=== PATIENT | female | born 1930 | race Caucasian/White ===

== ENCOUNTER 2017-08-13 11:54 | Inpatient (IN) | payer MEDICARE, BC ==
[2017-08-13] MEDS ORDERED: methylPREDNISolone 125 MG* 2 ML VIAL IV ONE (12:14)
[2017-08-13] MEDS ORDERED: Albuterol/Ipratropium NEB.SOL* Albuterol 2.5 MG/Ipratropium 0.5 MG 3 ML INH ONE ×2 (12:14→12:51)
[2017-08-13 12:35] LABS: ABS Basophils 0 10^3/ul (0-0.2); ABS Eosinophils 0 10^3/ul (0-0.6); ABS Monocytes 1.2 10^3/ul (0-0.8); ABS Neutrophils 8.4 10^3/ul (1.5-7.7); ABS Nucleated RBC 0 10^3/ul; Eosinophil % 0.1 % (0-6); Hematocrit 40 % (35-47); Hemoglobin 13.5 g/dl (12.0-16.0); Lymphocyte % 9.6 % (25-47); Mean Corpuscular HGB Conc 34 g/dl (31-36); Mean Corpuscular Hemoglobin 31 pg (27-31); Mean Corpuscular Volume 93 fL (80-97); Mean Platelet Volume 8 um3 (7.4-10.4); Nucleated Red Blood Cells % 0; Platelet Count 171 10^3/ul (150-450); Red Cell Distribution Width 14 % (10.5-15); White Blood Count 10.7 10^3/ul (3.5-10.8)
--- NOTE | 2017-08-13 12:43 | RAD ---
HISTORY: Shortness of breath COMPARISONS: May 17, 2017 VIEWS: 1: frontal portable view of the chest at 12:33 PM FINDINGS: LINES AND TUBES: None. CARDIOMEDIASTINAL SILHOUETTE: The cardiomediastinal silhouette is normal for portable technique. PLEURA: The costophrenic angles are sharp. No pleural abnormalities are noted. LUNG PARENCHYMA: There is hyperinflation. ABDOMEN: The upper abdomen is clear. There is no subphrenic gas. BONES AND SOFT TISSUES: Surgical clips are noted in the left axilla. IMPRESSION: COPD. NO ACTIVE CARDIOPULMONARY DISEASE.
[2017-08-13 12:49] LABS: EGFR Non-African American 84.9 (>60)
[2017-08-13] MEDS ORDERED: NS 0.9% 1000 ML* 1,000 ML IV SCH (15:15)
[2017-08-13] MEDS: Mometasone/Formoter 200/5 MDI INH SCH (20:34)
--- NOTE | 2017-08-13 21:28 | ED ---
Carlos Oropeza Julia, scribed for Noam Stokes MD on 08/13/17 at 1208 . Shortness of Breath - HPI Summary HPI Summary: This patient is a 86 year old F presenting to [facility] accompanied by her with a chief complaint of worsening SOB since this morning. Patient reports increased rhinorrhea and productive cough worse from baseline. Patient denies history of smoking. Patient uses a nebulizer once a day and is prescribed albeuterol. Patient has history of asthma, COPD, and a [place] occurring 20 years ago. Patient is regularly seen a [facility]. She was most recently seen about a month ago. She additionally is treated by Dr. Paige, straddle bug. - History of Current Complaint Chief Complaint: EDShortnessOfBreath Time Seen by Provider: 08/13/17 11:58 Hx Obtained From: Patient Onset/Duration: Sudden Onset Timing: Constant Associated Signs & Symptoms: Cough (Productive), Nasal Congestion Related History: Similar Episode - hx of asthma and COPD - Allergy/Home Medications Allergies/Adverse Reactions: Allergies Allergy/AdvReac Type Severity Reaction Status Date / Time Clarithromycin [From Biaxin] Allergy Rash Verified 05/17/17 10:00 Sulfa Drugs Allergy Rash Verified 05/17/17 10:00 Tetanus Toxoid Allergy See Comment Verified 05/17/17 10:00 PMH/Surg Hx/FS Hx/Imm Hx Endocrine/Hematology History: Reports: Hx Thyroid Disease - hypOthyroidism Denies: Hx Anticoagulant Therapy, Hx Blood Disorders, Hx Blood Transfusions, Hx Bone Marrow Disease, Hx Diabetes, Hx Systemic Lupus Erythematosus, Hx Sickle Cell Disease, Hx Anemia, Hx Unexplained Bleeding, Other Endocrine/Hematological Disorders Cardiovascular History: Reports: Hx Angina - in past, Hx Coronary Artery Disease - stent 1996,LAD, Hx Hypercholesterolemia, Hx Hypertension, Hx Myocardial Infarction - 1996, Other Cardiovascular Problems/Disorders - Hyperlipidemaia Denies: Hx Aneurysm, Hx Angioplasty, Hx Auto Implanted Cardiovert Defib, Hx Cardiac Arrest, Hx Cardiomegaly, Hx Congenital Heart Disease, Hx Congestive Heart Failure, Hx Deep Vein Thrombosis, Hx Hypotension, Hx Pacemaker/ICD, Hx Peripheral Vascular Disease, Hx Rheumatic Fever, Hx Syncope, Hx Valvular Heart Disease Respiratory History: Reports: Hx Asthma, Hx Chronic Bronchitis, Hx Chronic Obstructive Pulmonary Disease (COPD), Other Respiratory Problems/Disorders - 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 Denies: Hx Cystic Fibrosis, Hx Lung Cancer, Hx Pleural Effusion, Hx Pneumonia , Hx Pulmonary Edema, Hx Pulmonary Embolism, Hx Seasonal Allergies, Hx Sleep Apnea GI History: Denies: Hx Cirrhosis, Hx Crohn's Disease, Hx Diverticulosis, Hx Gall Bladder Disease, Hx Gastroesophageal Reflux Disease, Hx Gastrointestinal Bleed, Hx Hiatal Hernia, Hx Irritable Bowel, Hx Jaundice, Hx Obstructive Bowel, Hx Ileostomy, Hx Pyloric Stenosis, Hx Ulcer, Other GI Disorders History: Reports: Other Problems/Disorders - with Hysterectomy, bladder suspension, 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 Denies: Hx Acute Renal Failure, Hx Benign Prostatic Hyperplasia, Hx Chronic Renal Failure, Hx Dialysis, Hx Kidney Infection, Hx Kidney Stones Musculoskeletal History: Reports: Hx Osteoporosis Denies: Hx Arthritis, Hx Back Problems, Hx Bursitis, Hx Congenital Bone Abnormalities, Hx Fibromyalgia, Hx Gout, Hx Orthopedic Injury, Hx Scoliosis, Hx Tendonitis, Other Musculoskeletal History Sensory History: Reports: Hx Contacts or Glasses - reading glasses, Hx Hearing Problem Denies: Hx Cataracts, Hx Eye Injury, Hx Eye Prosthesis, Hx Glaucoma, Hx Macular Degeneration, Hx Vision Problem, Hx Deafness, Hx Hearing Aid, Other Sensory Impairments Opthamlomology History: Reports: Hx Contacts or Glasses - reading glasses Denies: Hx Cataracts, Hx Eye Injury, Hx Eye Prosthesis, Hx Glaucoma, Hx Macular Degeneration, Hx Vision Problem, Other Sensory Impairments Neurological History: Reports: Other Neuro Impairments/Disorders - R hand numbness after having wrist surgery Denies: Hx Dementia, Hx Developmental Delay, Hx Headaches, Hx Migraine, Hx Nerve Disease, Hx Seizures, Hx Spinal Cord Injury, Hx Transient Ischemic Attacks (TIA) - Cancer History Cancer Type, Location and Year: breast, 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 Hx Chemotherapy: No Hx Radiation Therapy: No - Surgical History Surgery Procedure, Year, and Place: Left masectomy, hysterectomy, melanoma removed right ear and middle back Hx Anesthesia Reactions: No - Immunization History Date of Tetanus Vaccine: Allergic Date of Influenza Vaccine: 05/04 Infectious Disease History: Denies: Hx Clostridium Difficile, Hx Hepatitis, Hx Human Immunodeficiency Virus (HIV), Hx Shingles, Hx Tuberculosis, Traveled Outside the [place] in Last 30 Days - Family History Known Family History: Positive: Other - cancer - Social History Alcohol Use: None Substance Use Type: Reports: None Hx Tobacco Use: No Smoking Status (MU): Never Smoked Tobacco Review of Systems Positive: Nasal Discharge Positive: Shortness Of Breath, Cough - productive All Other Systems Reviewed And Are Negative: Yes Physical Exam - Summary Physical Exam Summary: Appearance: The patient is well-nourished in no acute distress and in no acute pain. Skin: The skin is warm and dry and skin color reflects adequate perfusion. HEENT: The head is normocephalic and atraumatic. The pupils are equal and reactive. The conjunctivae are clear and without drainage. Nares are patent and without drainage. Mouth reveals moist mucous membranes and the throat is without erythema and exudate. The external ears are intact. The ear canals are patent and without drainage. The tympanic membranes are intact. Neck: the neck is supple with full range of motion and non-tender. There are no carotid bruits. There is no neck vein distension. Respiratory: Chest is non-tender. Expiratory wheezes are present in all newman. There is an increased AP diameter. Patient uses accessory muscles to breath. Patient presents with mild contractions. Cardiovascular: Heart is regular rate and rhythm. There is no murmur or rub auscultated. There is no peripheral edema and pulses are symmetrical and equal. Abdomen: The abdomen is soft and non-tender. There are normal bowel sounds heard in all four quadrants and there is no organomegaly palpated. Musculoskeletal: There is no back tenderness noted. Extremities are non-tender with full range of motion. There is good capillary refill. There is no peripheral edema or calf tenderness elicited. Neurological: Patient is alert and oriented to person, place and time. The patient has symmetrical motor strength in all four extremities. Cranial nerves are grossly intact. Deep tendon reflexes are symmetrical and equal in all four extremities. Psychiatric: The patient has an appropriate affect and does not exhibit any anxiety or depression Triage Information Reviewed: Yes Vital Signs On Initial Exam: Initial Vitals Temp Pulse Resp BP Pulse Ox 97.3 F 87 26 154/69 97 08/13/17 12:01 08/13/17 12:01 08/13/17 12:01 08/13/17 12:01 08/13/17 12:01 Vital Signs Reviewed: Yes Diagnostics - Vital Signs Vital Signs Temp Pulse Resp BP Pulse Ox 08/13/17 14:24 83 26 133/66 95 08/13/17 14:00 78 25 95 08/13/17 13:00 79 25 98 08/13/17 12:33 76 25 100 08/13/17 12:19 95 08/13/17 12:04 88 154/69 90 08/13/17 12:02 88 83 08/13/17 12:01 97.3 F 87 26 154/69 97 - Laboratory Lab Results: Lab Results 08/13/17 08/13/17 08/13/17 Range/Units 12:26 12:26 12:26 WBC 10.7 (3.5-10.8) 10^3/ul RBC 4.30 (4.0-5.4) 10^6/ul Hgb 13.5 (12.0-16.0) g/dl Hct 40 (35-47) % MCV 93 (80-97) fL MCH 31 (27-31) pg MCHC 34 (31-36) g/dl RDW 14 (10.5-15) % Plt Count 171 (150-450) 10^3/ul MPV 8 (7.4-10.4) um3 Neut % (Auto) 78.3 (38-83) % Lymph % (Auto) 9.6 L (25-47) % George % (Auto) 11.6 H (1-9) % Eos % (Auto) 0.1 (0-6) % Baso % (Auto) 0.4 (0-2) % Absolute Neuts (auto) 8.4 H (1.5-7.7) 10^3/ul Absolute Lymphs (auto) 1.0 (1.0-4.8) 10^3/ul Absolute Monos (auto) 1.2 H (0-0.8) 10^3/ul Absolute Eos (auto) 0 (0-0.6) 10^3/ul Absolute Basos (auto) 0 (0-0.2) 10^3/ul Absolute Nucleated RBC 0 10^3/ul Nucleated RBC % 0 Sodium 132 L (133-145) mmol/L Potassium 3.5 (3.5-5.0) mmol/L Chloride 96 L (101-111) mmol/L Carbon Dioxide 29 (22-32) mmol/L Anion Gap 7 (2-11) mmol/L BUN 17 (6-24) mg/dL Creatinine 0.66 (0.51-0.95) mg/dL Est GFR ( Amer) 109.2 (>60) Est GFR (Non-Af Amer) 84.9 (>60) BUN/Creatinine Ratio 25.8 H (8-20) Glucose 116 H (70-100) mg/dL Lactic Acid 1.1 (0.5-2.0) mmol/L Calcium 9.4 (8.6-10.3) mg/dL Total Bilirubin 0.70 (0.2-1.0) mg/dL AST 41 H (13-39) U/L ALT 26 (7-52) U/L Alkaline Phosphatase 77 (34-104) U/L Troponin I 0.03 (<0.04) ng/mL C-Reactive Protein 58.90 H (< 5.00) mg/L Total Protein 6.9 (6.4-8.9) g/dL Albumin 3.8 (3.2-5.2) g/dL Globulin 3.1 (2-4) g/dL Albumin/Globulin Ratio 1.2 (1-3) Influenza A (Rapid) (Negative) Influenza B (Rapid) (Negative) 08/13/17 Range/Units 12:30 WBC (3.5-10.8) 10^3/ul RBC (4.0-5.4) 10^6/ul Hgb (12.0-16.0) g/dl Hct (35-47) % MCV (80-97) fL MCH (27-31) pg MCHC (31-36) g/dl RDW (10.5-15) % Plt Count (150-450) 10^3/ul MPV (7.4-10.4) um3 Neut % (Auto) (38-83) % Lymph % (Auto) (25-47) % George % (Auto) (1-9) % Eos % (Auto) (0-6) % Baso % (Auto) (0-2) % Absolute Neuts (auto) (1.5-7.7) 10^3/ul Absolute Lymphs (auto) (1.0-4.8) 10^3/ul Absolute Monos (auto) (0-0.8) 10^3/ul Absolute Eos (auto) (0-0.6) 10^3/ul Absolute Basos (auto) (0-0.2) 10^3/ul Absolute Nucleated RBC 10^3/ul Nucleated RBC % Sodium (133-145) mmol/L Potassium (3.5-5.0) mmol/L Chloride (101-111) mmol/L Carbon Dioxide (22-32) mmol/L Anion Gap (2-11) mmol/L BUN (6-24) mg/dL Creatinine (0.51-0.95) mg/dL Est GFR ( Amer) (>60) Est GFR (Non-Af Amer) (>60) BUN/Creatinine Ratio (8-20) Glucose (70-100) mg/dL Lactic Acid (0.5-2.0) mmol/L Calcium (8.6-10.3) mg/dL Total Bilirubin (0.2-1.0) mg/dL AST (13-39) U/L ALT (7-52) U/L Alkaline Phosphatase (34-104) U/L Troponin I (<0.04) ng/mL C-Reactive Protein (< 5.00) mg/L Total Protein (6.4-8.9) g/dL Albumin (3.2-5.2) g/dL Globulin (2-4) g/dL Albumin/Globulin Ratio (1-3) Influenza A (Rapid) Negative (Negative) Influenza B (Rapid) Negative (Negative) Result Diagrams: 08/13/17 12:26 08/13/17 12:26 Lab Statement: Any lab studies that have been ordered have been reviewed, and results considered in the medical decision making process. - Radiology CXR Radiology Interpretation Completed By: Radiologist - COPD. NO ACTIVE CARDIOPULMONARY DISEASE. ED Physician has reviewed this report. - EKG 12:21 Cardiac Rate: NL EKG Rhythm: Sinus Rhythm - at 76 BPM EKG Interpretation: L axis deviation Re-Evaluation - Re-Evaluation 1 Re-Evaluation Time: 13:12 Change: Unchanged - Patient is still presenting with tachypnea and is still using accessory muscles to breath. Patient is more comfortable Course/Dx - Course Course Of Treatment: Ms. Hannah presented SOB. She has a history of COPD and has had some URI symptoms recently. She had diffuse expiratory wheezes and an increased E/I. She improved some with Nebs and solumedrol but was still working hard and I have asked the hospitalists to admit her - Diagnoses Provider Diagnoses: COPD exacerbation - Critical Care Time Critical Care Time: 30-74 min Discharge - Discharge Plan Condition: Stable Disposition: ADMITTED TO [facility] The documentation as recorded by the Carlos hathaway Julia accurately reflects the service I personally performed and the decisions made by me, Noam Stokes MD.
[2017-08-13] MEDS: DOXYcycline CAP(*) 100 MG PO SCH (22:04)
[2017-08-13] MEDS: Atorvastatin* 40 MG TAB PO SCH (22:04)
[2017-08-13] MEDS: Heparin VIAL(*) 5000 UNITS/ML VIAL (FIVE THOUSAND) SUBCUT SCH (22:04)
--- NOTE | 2017-08-13 23:29 | HP ---
CC: Dr. Jefferson * HISTORY AND PHYSICAL: DATE OF ADMISSION: 08/13/17 PRIMARY CARE PROVIDER: Dr. Jefferson. ATTENDING PHYSICIAN: Gaviota Arango DO * (dictation provided by Sri Aburto NP ). CHIEF COMPLAINT: Shortness of breath with cough. HISTORY OF PRESENT ILLNESS: Ms. 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 She presents today to the hospital after having about 5 to 6 days of worsening cough with shortness of breath. She reports starting to feel unwell on Monday or Monday of last week. She has noted increased postnasal drip. She has had initially a clear sputum now with yellow thicker sputum. She felt that she was feverish last night, but she did not take her temperature. She was having very difficult time sleeping. This morning when she awoke, she checked her O2 saturation via home monitor and it was 85% on room air. Despite using her 's oxygen, she was unable to get the O2 saturation to rise above 90% and therefore she called emergency medical services to be brought to the ED. On arrival of the EMS, patient's O2 saturation was 83% on room air and she was transported to [facility]. In the emergency room, Ms. Hannah had labs, which showed no leukocytosis. She is afebrile. She is saturating well, greater than 90% on 2 L nasal cannula. She is hemodynamically stable. Her chest x-ray shows chronic findings consistent with COPD with no acute change. PAST MEDICAL HISTORY: 1. Lymphangioleiomyomatosis. 2. Coronary artery disease. 3. Hyperlipidemia. 4. Hypothyroidism. 5. Hypertension. MEDICATIONS OUTPATIENT: 1. Albuterol 2 puffs inhaled q.4 hours p.r.n. 2. Ipratropium nebulizer 0.5 mg inhaled t.i.d. p.r.n. 3. Nitroglycerin tab p.r.n. 4. Amlodipine 2.5 mg p.o. daily. 5. Aspirin 81 mg p.o. daily. 6. Atorvastatin 40 mg p.o. at bedtime. 7. Cholecalciferol 1000 units p.o. daily. 8. Clotrimazole barbara 1 tab p.o. daily. 9. Fluticasone salmeterol 500/50 one puff inhaled b.i.d. 10. Levothyroxine 88 mcg p.o. daily. ALLERGIES: Includes CLARITHROMYCIN, SULFA DRUGS, and TETANUS TOXOID. FAMILY HISTORY: The patient reports her mother around age 99 of old age. Her dad had prostate cancer. SOCIAL HISTORY: The patient has never been a smoker. There is no report of alcohol or drug use. She lives with her , who is the healthcare proxy. REVIEW OF SYSTEMS: A 14-point review of systems was completed with Ms. Hannah and all those not mentioned above were negative. PHYSICAL EXAMINATION GENERAL: Ms. Hannah is sitting up in the bed with her at the bedside. She appears mildly short of breath at rest, but no acute distress. VITAL SIGNS: Temperature 97.3, pulse rate 83, respiratory rate 26, O2 saturations 95% on 2 L nasal cannula, blood pressure 133/66. LUNGS: Congested bilaterally with wheezing and rhonchi throughout. HEART: S1, S2. No murmur, rub or gallop and regular. ABDOMEN: Soft, nontender with bowel sounds positive x4. EXTREMITIES: No cyanosis or edema. NEUROLOGIC: She is alert, she is oriented x3, she moves all extremities equally. There is no facial asymmetry or focal weakness. Extraocular movements are intact. SKIN: Intact. LABORATORY DATA: WBC 10.7, hemoglobin 13.5, hematocrit 40, platelet count 171. Sodium 132, potassium 3.5, chloride 96, serum bicarbonate 29, BUN 17, creatinine 0.66, glucose 116. CRP is 58.90. Flu swab is negative. Chest x-ray shows COPD only. EKG shows sinus rhythm with no evidence of ischemia. ASSESSMENT: Ms. Hannah is an 86-year-old female who presented today to the hospital with concern for shortness of breath. She has a history of lymphangioleiomyomatosis. Our plans are for observation in the hospital for the followin. Lymphangioleiomyomatosis with acute hypoxic respiratory failure: I suspect that the patient perhaps had a viral illness earlier this week that is now causing either an exacerbation of underlying obstructive disease. The chest x- ray shows no acute infiltrate. Therefore, plan to treat with Solu-Medrol 60 mg IV b.i.d. as well as doxycycline (the patient has an allergy to CLARITHROMYCIN) . She is saturating well on 2 L nasal cannula, though she does appear mildly short of breath at rest and is tachypneic. I do not think that she has an overt pneumonia. I note that she has been a sepsis criteria, but I think this is secondary to acute hypoxic respiratory failure. She will have oxygen available as needed. She will have duo nebulizers available as needed. 2. Hypertension: Continue amlodipine. 3. Coronary artery disease: Continue atorvastatin and aspirin. 4. Hypothyroidism: Continue levothyroxine. 5. Code status: DNR/DNI and a MOST form has been completed with the patient. TIME SPENT: Approximately 60 minutes were spent on the admission of this patient, more than half the time was spent with patient at the bedside reviewing the events leading up to this hospitalization, performing physical examination, reviewing my plan of care. SRI ABURTO, SHAWNA [id number]/CPS #: [id number] FRANCO
[2017-08-14] MEDS: Heparin VIAL(*) 5000 UNITS/ML VIAL (FIVE THOUSAND) SUBCUT SCH ×3 (05:39→20:32)
[2017-08-14] MEDS: Levothyroxine TAB* 88 MCG TAB PO SCH (05:39)
[2017-08-14 07:08] LABS: EGFR Non-African American 125.6 (>60)
[2017-08-14] MEDS ORDERED: Potassium Chlor TAB* 20 MEQ TAB.ER PO ONE (08:02)
[2017-08-14] MEDS: Mometasone/Formoter 200/5 MDI INH SCH ×2 (08:06→19:52)
[2017-08-14] MEDS: Albuterol/Ipratropium NEB.SOL* Albuterol 2.5 MG/Ipratropium 0.5 MG 3 ML INH PRN (08:11)
[2017-08-14] MEDS: Cholecalciferol TAB* 1000 UNITS PO SCH (09:02)
[2017-08-14] MEDS: DOXYcycline CAP(*) 100 MG PO SCH ×2 (09:02→20:29)
[2017-08-14] MEDS: amLODIPine TAB* 5 MG PO SCH (09:02)
[2017-08-14] MEDS: Aspirin EC Low Dose* 81 MG TAB.EC PO SCH (09:02)
[2017-08-14] MEDS: Clotrimazole TROCHE* 10 MG TROCHE PO SCH (09:03)
[2017-08-14] MEDS: methylPREDNISolone SOD 40 MG* 1 ML VIAL IV SCH ×2 (09:03→20:30)
--- NOTE | 2017-08-14 14:07 | PN ---
Subjective Date of Service: 08/14/17 Interval History: Patient seen and examined. States she is feeling better, cough is productive of yellow sputum. Denies SOB, but states she feels tired. No chest pain, slept well , no further complaints. Objective Active Medications: Albuterol/Ipratropium (Duoneb (Albuterol 2.5 Mg/Ipratropium 0.5 Mg)) 1 neb INH Q4H PRN PRN Reason: SOB/WHEEZING Last Admin: 08/14/17 08:11 Dose: 1 neb Amlodipine Besylate (Norvasc Tab*) 2.5 mg PO DAILY [facility] Last Admin: 08/14/17 09:02 Dose: 2.5 mg Aspirin (Aspirin Ec Low Dose*) 81 mg PO DAILY [facility] Last Admin: 08/14/17 09:02 Dose: 81 mg Atorvastatin Calcium (Lipitor*) 40 mg PO BEDTIME [facility] Last Admin: 08/13/17 22:04 Dose: 40 mg Cholecalciferol (Vitamin D Tab*) 1,000 units PO DAILY [facility] Last Admin: 08/14/17 09:02 Dose: 1,000 units Clotrimazole (Mycelex Fina*) 10 mg PO DAILY [facility] Last Admin: 08/14/17 09:03 Dose: 10 mg Doxycycline Hyclate (Vibramycin Cap(*)) 100 mg PO BID [facility] Last Admin: 08/14/17 09:02 Dose: 100 mg Heparin Sodium (Porcine) (Heparin Vial(*)) 5,000 units SUBCUT Q8HR [facility] Last Admin: 08/14/17 05:39 Dose: 5,000 units Levothyroxine Sodium (Synthroid Tab*) 88 mcg PO 0600 [facility] Last Admin: 08/14/17 05:39 Dose: 88 mcg Methylprednisolone Sodium Succinate (Solu-Medrol 40 Mg) 60 mg IV Q12H [facility] Last Admin: 08/14/17 09:03 Dose: 60 mg Mometasone Furoate/Formoterol Fumar (Dulera 200/5 Mdi*) 2 puff INH BID [facility] Last Admin: 08/14/17 08:06 Dose: 2 puff Oxygen Devices in Use Now: None Appearance: Alert, flushed, mildly tremulous Eyes: No Scleral Icterus, PERRLA Ears/Nose/Mouth/Throat: NL Teeth, Lips, Gums, Mucous Membranes Moist Neck: NL Appearance and Movements; NL JVP, Trachea Midline Respiratory: Symmetrical Chest Expansion and Respiratory Effort, - - wheezy, course breath sounds through, no consolidation appreciated Cardiovascular: NL Sounds; No Murmurs; No JVD, RRR Abdominal: NL Sounds; No Tenderness; No Distention Extremities: No Edema, No Clubbing, Cyanosis Skin: No Rash or Ulcers Neurological: Alert and Oriented x 3, NL Muscle Strength and Tone Nutrition: Taking PO's Result Diagrams: 08/13/17 12:26 08/14/17 06:13 Microbiology and Other Data: Microbiology 08/13/17 12:40 Aerobic Blood Culture - Preliminary Blood Venous No Growth Day 1 Anaerobic Blood Culture - Preliminary No Growth Day 1 08/13/17 12:26 Aerobic Blood Culture - Preliminary Blood Venous No Growth Day 1 Anaerobic Blood Culture - Preliminary No Growth Day 1 08/13/17 12:10 Influenza Types A,B Antigen (BRENDEN) - Final Nasal Specimen received for Influenza A/B Molecular testing Diagnostic Imaging: Patient Name: VINICIUS GOOD Medical Record#: [id number] Ordering Physician: Noam Stokes MD Acct.#: [id number] : 1930 Age: 86 Sex: F Location: EMERGENCY DEPARTMENT Exam Date: 08/13/174 ADM Status: REG ER Order Information: CHEST AP PORTABLE Accession Number: [id number] CPT: 95345 HISTORY: Shortness of breath COMPARISONS: May 17, 2017 VIEWS: 1: frontal portable view of the chest at 12:33 PM FINDINGS: LINES AND TUBES: None. CARDIOMEDIASTINAL SILHOUETTE: The cardiomediastinal silhouette is normal for portable technique. PLEURA: The costophrenic angles are sharp. No pleural abnormalities are noted. LUNG PARENCHYMA: There is hyperinflation. ABDOMEN: The upper abdomen is clear. There is no subphrenic gas. BONES AND SOFT TISSUES: Surgical clips are noted in the left axilla. IMPRESSION: COPD. NO ACTIVE CARDIOPULMONARY DISEASE. <Electronically signed by Rajesh Borges MD in OV> 08/13/17 1240 Dictated By: Rajesh Borges MD Dictated Date/Time: 08/13/17 1240 Transcribed Date/Time: 08/13/17 1239 Copy to: CC:Noam Stokes MD; Marry Jefferson MD Imaging - [facility] Imaging - [facility] Imaging - [facility] [address] [place] [id number] [place] [id number] [place] [id number] ph [phone]) ph [phone]) ph ([phone]) 1 of 1 Assess/Plan/Problems-Billing Assessment: This is an 86 year old female that presented to the ER with persistent SOB and hypoxi respiratory failure likely 2/2 viral illness and acute exac of COPD. - Patient Problems (1) Pulmonary lymphangioleiomyomatosis Code(s): J84.81 - LYMPHANGIOLEIOMYOMATOSIS SNOMED Code(s): 854867055 Comment: - Appears to be at baseline, not on sirolimus treatment (2) COPD with exacerbation Code(s): J44.1 - CHRONIC OBSTRUCTIVE PULMONARY DISEASE W (ACUTE) EXACERBATION SNOMED Code(s): 552180264 Comment: - On doxy BID - methylprednisolone Q8h - O2 to keep sats >90% - IS and flutter device - Albuterol nebs - Sputum culture - Supportive care (3) Dyslipidemia Code(s): E78.5 - HYPERLIPIDEMIA, UNSPECIFIED SNOMED Code(s): 851464751 Comment: - Continue statin (4) Hypothyroidism Code(s): E03.9 - HYPOTHYROIDISM, UNSPECIFIED SNOMED Code(s): 57299432 Comment: - Continue levothyroxine (5) Hypokalemia Code(s): E87.6 - HYPOKALEMIA SNOMED Code(s): 20196652 Comment: - Replete and monitor Status and Disposition: Remain inpatient and follow cultures. Counseling and/or Coordination of Care Minutes: coordinated with patient and staff
[2017-08-14] MEDS: Atorvastatin* 40 MG TAB PO SCH (20:29)
[2017-08-15] MEDS: Levothyroxine TAB* 88 MCG TAB PO SCH (05:11)
[2017-08-15] MEDS: Heparin VIAL(*) 5000 UNITS/ML VIAL (FIVE THOUSAND) SUBCUT SCH (05:12)
[2017-08-15 07:33] VITALS: BP 142/65
[2017-08-15] MEDS: Aspirin EC Low Dose* 81 MG TAB.EC PO SCH (08:48)
[2017-08-15] MEDS: amLODIPine TAB* 5 MG PO SCH (08:48)
[2017-08-15] MEDS: Cholecalciferol TAB* 1000 UNITS PO SCH (08:49)
[2017-08-15] MEDS: methylPREDNISolone SOD 40 MG* 1 ML VIAL IV SCH (08:49)
[2017-08-15] MEDS: Mometasone/Formoter 200/5 MDI INH SCH (08:49)
[2017-08-15] MEDS: DOXYcycline CAP(*) 100 MG PO SCH (08:49)
[2017-08-15] MEDS: Albuterol/Ipratropium NEB.SOL* Albuterol 2.5 MG/Ipratropium 0.5 MG 3 ML INH PRN (08:49)
[2017-08-15] MEDS: Clotrimazole TROCHE* 10 MG TROCHE PO SCH (08:49)
[2017-08-15 10:42] LABS: EGFR Non-African American 104.8 (>60)
[2017-08-15] MEDS ORDERED: Potassium Chlor TAB* 20 MEQ TAB.ER PO ONE (12:17)
--- NOTE | 2017-08-17 19:07 | DS ---
CC: Dr. Jefferson; Dr. Purcell DISCHARGE SUMMARY: DATE OF ADMISSION: 08/13/17 DATE OF DISCHARGE: 08/15/17 ATTENDING DURING THIS HOSPITALIZATION: Dr. Joe Purcell. PRIMARY CARE PHYSICIAN: Dr. Marry Jefferson. HOSPITAL COURSE: This is a very pleasant 86-year-old female, who came to the emergency department wi th a complaint of cough, flu-like viral symptoms, and increasing shortness of breath and sputum. The patient had stated it had been getting increasingly worse for a couple, that is why she came to the emergency department. She was concerned that she had the flu and she had been using her 's ox ygen and her does use oxygen periodically. She started to use her 's oxygen and then also tested her pulse ox when she was at home and noticed that it was very low. It was difficult to get above 90% even on her 's oxygen. At that point actually, her called EMS services and she was brought to the emergency department by EMS to evaluate her pulmonary status. PAST MEDICAL HISTORY: Significant for coronary artery disease, hyperlipidemia, hypothyroidism, hyper tension, and lymphangioleiomyomatosis. MEDICATIONS: At home, include: 1. Albuterol 2 puffs inhaled q.4. 2. Ipratropium nebulizer 0.5 mg 3 times a day as needed. 3. Nitroglycerin tabs as needed. 4. Amlodipine 2.5 mg daily. 5. Aspirin 81 mg daily. 6. Atorvastatin 40 mg daily. 7. Cholecalciferol 1000 units daily. 8. Clotrimazole barbara 1 tab daily. 9. Fluticasone/salmeterol 500/50 one puff inhaled 2 times a day. 10. Levothyroxine 88 mcg daily. The patient at admission was started on broad-spectrum antibiotics, interestingly although she is all ergic to CLARITHROMYCIN. So, she was treated with Solu-Medrol 60 mg 2 times a day and doxycycline es sentially for acute hypoxic respiratory failure and suspect that it was secondary to some underlying COPD and preexisting lung condition, so we treated her as an exacerbation of COPD. She was also rece iving supplemental oxygen and she was slightly tachypneic. These all began to resolve over the cours e of about 48 hours. Of significant note, her chest x-ray did not show an acute lobar consolidation or pneumonia; however, she was quite rhonchorous and had some expiratory wheeze, but did not appear t o have consolidation. She received DuoNeb nebulizers with good effect. She did have some weakness a nd tremulousness, so she was kept in observation and again received supportive care during that time. Less than about 48 hours of admission, she began to feel better. She did not spike some fever or t emperature. She felt good enough to go home at that point and she was discharged in the care of her on 08/15/17. PHYSICAL EXAMINATION: Vital Signs: On the day of discharge, O2 saturation 93% on 2 L, respiratory r ate 16, heart rate 65, and blood pressure 142/65. Also, of note, the patient was desatting off oxyge n with ambulation. She was satting to about 84% to 86%, so she was discharged to home on home oxygen . The patient is awake and alert in no acute distress. Vital signs as above. HEENT: The patient is at raumatic and normocephalic. PERRLA with nonicteric sclerae. Neck was supple and nontender. No JVD was noted. No thyromegaly appreciated. No carotid bruits auscultated. Lungs were diminished at the bases, rhonchi significantly diminished, essentially clear at the apices. No wheeze appreciated. Sh e still had a mild cough productive of thin yellow sputum. Cardiovascular: Heart rate and rhythm wer e regular. Positive S1 and S2 noted. No murmurs, gallops, or rubs noted. Abdomen: Soft, nontender , and nondistended. Positive bowel sounds in all 4 quadrants. : Deferred. Musculoskeletal: The re is no clubbing, no cyanosis, no edema. Positive pedal pulses noted. She had a steady gait. Neur ologic: Grossly intact with no focal deficits. Psychiatric: She is cooperative and appropriate. LABORATORY DATA: On the day of discharge, sodium 137, potassium 3.3, chloride 101, carbon dioxide 29 , BUN 16, creatinine 0.55, GFR 104.8, glucose 161, calcium 9.5. WBC 10.7, RBC is 4.3, hemoglobin 13.5 , hematocrit 40, platelets 171. PLAN: The patient was planned to be discharged to home again in the care of her with home ox ygen supplied. She is to follow up with her primary care physician in the next 1 to 2 weeks. The diane miller stated her understanding. DISCHARGE MEDICATIONS: 1. Nitroglycerin 0.4 mg as needed. 2. Levothyroxine 88 mcg daily. 3. Cholecalciferol 1000 units daily. 4. Atorvastatin 40 mg daily. 5. Aspirin 81 mg daily. 6. Atrovent neb 0.5 mg 3 times a day as needed. 7. Clotrimazole barbara 10 mg 1 tab p.o. daily. 8. Albuterol inhaler 2 puffs q.4 as needed. 9. Amlodipine 2.5 mg daily. 10. Fluticasone/salmeterol 500/50 one puff 2 times a day. 11. Doxycycline 100 mg 1 tablet 2 times a day for 8 days. 12. Prednisone 50 mg a day x5 days. FOLLOWUP: Again, the patient was instructed to follow up with her primary care provider. The erika ching stated understanding of her discharge instructions and was sent home in stable condition. GELACIO GARCIA NP [id number]/CPS #: [id number]
== END 2017-08-15 13:25 | disposition home or self-care (01) | DRG 189 ==
LOC: ED 11:54 → MED 14:58 → OBSVTOIN 08-14 12:00
PROVIDERS: ADMIT Hospitalist; ATTEND Internal Medicine
DX: J96.01 Acute respiratory failure with hypoxia (principal); J84.81 Lymphangioleiomyomatosis; J44.1 Chronic obstructive pulmonary disease with (acute) exacerbation; B34.9 Viral infection, unspecified; E78.5 Hyperlipidemia, unspecified; E03.9 Hypothyroidism, unspecified; E87.6 Hypokalemia; I25.10 Atherosclerotic heart disease of native coronary artery without angina pectoris; I11.9 Hypertensive heart disease without heart failure; Z79.82 Long term (current) use of aspirin; Z79.899 Other long term (current) drug therapy; Z88.1 Allergy status to other antibiotic agents; Z88.2 Allergy status to sulfonamides; Z88.7 Allergy status to serum and vaccine; Z80.42 Family history of malignant neoplasm of prostate
CPT/HCPCS: 36415; 71045; 80048; 80053; 83605; 84484; 85025; 86140; 87040; 87502; 93005; 94640; 94760; A9270-GY; G0378; J1644; J2920; J2930

== ENCOUNTER 2019-07-10 00:02 | Emergency (ER) | payer MEDICARE, BC ==
[2019-07-10] MEDS ORDERED: NS 0.9% 1000 ML** 1,000 ML IV ONE (00:33)
--- NOTE | 2019-07-10 00:34 | ED ---
Abdominal Pain/Female - HPI Summary HPI Summary: Patient complains of left side abdominal pain starting last night. Pain was described as constant, 10 out of 10 until she got up. States no pain through the course of the day, and then pain returned if worse when she lay down again tonight. Pain currently rated at 2/10 while sitting up in the exam room. Pain worse with deep inhalation. Denies trauma, fever, cough, sore throat, CP, N/V/V /D, change in urine, change in BM, vaginal symptoms. Medical history is [place] 20 years ago, asthma. Abdominal surgical history includes total hysterectomy and bladder suspension. - History of Current Complaint Chief Complaint: EDAbdPain Stated Complaint: L UPPER Q PAIN PER EMS Time Seen by Provider: 07/10/19 00:22 Hx Obtained From: Patient Onset/Duration: Sudden Onset, Lasting Hours Timing: Intermittent Episode Lasting Severity Initially: Severe Severity Currently: Mild Pain Intensity: 2 Pain Scale Used: 0-10 Numeric Location: Discrete At: LUQ, Discrete At: LLQ Radiates: No Character: Sharp, Dull Aggravating Factor(s): Deep Breaths Alleviating Factor(s): Position Associated Signs and Symptoms: Positive: Negative Allergies/Adverse Reactions: Allergies Allergy/AdvReac Type Severity Reaction Status Date / Time clarithromycin Allergy Severe Rash Verified 07/10/19 00:11 Sulfa (Sulfonamide Allergy Severe Rash Verified 07/10/19 00:11 Antibiotics) Tetanus Vaccines and Toxoid Allergy Severe See Comment Verified 07/10/19 00:11 Home Medications: Home Medications Spironolactone 12.5 mg PO DAILY 07/10/19 [History Confirmed 07/10/19] PMH/Surg Hx/FS Hx/Imm Hx Endocrine/Hematology History: Reports: Hx Thyroid Disease - hypothyroidism Denies: Hx Anticoagulant Therapy, Hx Blood Disorders, Hx Blood Transfusions, Hx Bone Marrow Disease, Hx Diabetes, Hx Systemic Lupus Erythematosus, Hx Sickle Cell Disease, Hx Anemia, Hx Unexplained Bleeding, Other Endocrine/Hematological Disorders Cardiovascular History: Reports: Hx Angina - in past, Hx Coronary Artery Disease - stent 1996,LAD, Hx Hypercholesterolemia, Hx Hypertension, Hx Myocardial Infarction - 1996, Other Cardiovascular Problems/Disorders - Hyperlipidemia Denies: Hx Aneurysm, Hx Angioplasty, Hx Auto Implanted Cardiovert Defib, Hx Cardiac Arrest, Hx Cardiomegaly, Hx Congenital Heart Disease, Hx Congestive Heart Failure, Hx Deep Vein Thrombosis, Hx Hypotension, Hx Pacemaker/ICD, Hx Peripheral Vascular Disease, Hx Rheumatic Fever, Hx Syncope, Hx Valvular Heart Disease Respiratory History: Reports: Hx Asthma - hx of, Hx Chronic Bronchitis, Hx Chronic Obstructive Pulmonary Disease (COPD), Other Respiratory Problems/ Disorders - 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 Denies: Hx Cystic Fibrosis, Hx Lung Cancer, Hx Pleural Effusion, Hx Pneumonia , Hx Pulmonary Edema, Hx Pulmonary Embolism, Hx Seasonal Allergies, Hx Sleep Apnea GI History: Denies: Hx Cirrhosis, Hx Crohn's Disease, Hx Diverticulosis, Hx Gall Bladder Disease, Hx Gastroesophageal Reflux Disease, Hx Gastrointestinal Bleed, Hx Hiatal Hernia, Hx Irritable Bowel, Hx Jaundice, Hx Obstructive Bowel, Hx Ileostomy, Hx Pyloric Stenosis, Hx Ulcer, Other GI Disorders History: Reports: Other Problems/Disorders - with Hysterectomy, bladder suspension, 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 Denies: Hx Acute Renal Failure, Hx Benign Prostatic Hyperplasia, Hx Chronic Renal Failure, Hx Dialysis, Hx Kidney Infection, Hx Kidney Stones Musculoskeletal History: Reports: Hx Osteoporosis, Other Musculoskeletal History - osteoporosis Denies: Hx Arthritis, Hx Back Problems, Hx Bursitis, Hx Congenital Bone Abnormalities, Hx Fibromyalgia, Hx Gout, Hx Orthopedic Injury, Hx Scoliosis, Hx Tendonitis Sensory History: Reports: Hx Cataracts - left eye, Hx Contacts or Glasses - reading glasses, Hx Hearing Problem Denies: Hx Eye Injury, Hx Eye Prosthesis, Hx Glaucoma, Hx Macular Degeneration, Hx Vision Problem, Hx Deafness, Hx Hearing Aid, Other Sensory Impairments Opthamlomology History: Reports: Hx Cataracts - left eye, Hx Contacts or Glasses - reading glasses Denies: Hx Eye Injury, Hx Eye Prosthesis, Hx Glaucoma, Hx Macular Degeneration, Hx Vision Problem, Other Sensory Impairments Neurological History: Denies: Hx Dementia, Hx Developmental Delay, Hx Headaches, Hx Migraine, Hx Nerve Disease, Hx Seizures, Hx Spinal Cord Injury, Hx Transient Ischemic Attacks (TIA), Other Neuro Impairments/Disorders Psychiatric History: Reports: Hx Anxiety - Cancer History Cancer Type, Location and Year: breast, 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 detached retina repair with laser Hx Anesthesia Reactions: No - Immunization History Date of Tetanus Vaccine: Allergic Date of Influenza Vaccine: Fall 2018 Infectious Disease History: No Infectious Disease History: Denies: Hx Clostridium Difficile, Hx Hepatitis, Hx Human Immunodeficiency Virus (HIV), Hx Shingles, Hx Tuberculosis, Traveled Outside the [place] in Last 30 Days - Family History Known Family History: Positive: Other - cancer - Social History Alcohol Use: None Substance Use Type: Reports: None Hx Tobacco Use: No Smoking Status (MU): Never Smoked Tobacco Review of Systems Constitutional: Negative Eyes: Negative ENT: Negative Cardiovascular: Negative Respiratory: Negative Positive: Abdominal Pain Genitourinary: Negative Musculoskeletal: Negative Skin: Negative Neurological: Negative Psychological: Normal All Other Systems Reviewed And Are Negative: Yes Physical Exam - Summary Physical Exam Summary: Left lower quadrant pain, abdominal exam otherwise unremarkable. Triage Information Reviewed: Yes Vital Signs On Initial Exam: Initial Vitals Temp Pulse Resp BP Pulse Ox 98.7 F 76 22 142/73 92 07/10/19 00:06 07/10/19 00:06 07/10/19 00:06 07/10/19 00:06 07/10/19 00:06 Vital Signs Reviewed: Yes Appearance: Positive: Well-Appearing Skin: Positive: Warm Head/Face: Positive: Normal Head/Face Inspection Eyes: Positive: Normal Neck: Positive: Supple Respiratory/Lung Sounds: Positive: Clear to Auscultation Cardiovascular: Positive: Normal Abdomen Description: Positive: Other: Musculoskeletal: Positive: Normal Neurological: Positive: Normal Psychiatric: Positive: Normal AVPU Assessment: Alert - Daria Coma Scale Best Eye Response: 4 - Spontaneous Best Motor Response: 6 - Obeys Commands Best Verbal Response: 5 - Oriented Coma Scale Total: 15 Procedures - Sedation Patient Received Moderate/Deep Sedation with Procedure: No Diagnostics - Vital Signs Vital Signs Temp Pulse Resp BP Pulse Ox 07/10/19 00:06 98.7 F 76 22 142/73 92 - Laboratory Result Diagrams: 07/10/19 00:43 07/10/19 00:43 Lab Statement: Any lab studies that have been ordered have been reviewed, and results considered in the medical decision making process. Re-Evaluation - Re-Evaluation First Eval Re-Evaluation Time: 04:06 Comment: No hx bladder stones. Agrees to take antibiotics. Advised to drink water and follow up with urology. I have discussed results with the patient and symptoms have resolved. Discussed symptoms that warrant immediate return to ED. Abdominal Pain Fem Course/Dx - Course Course Of Treatment: Patient complains of left side abdominal pain starting last night. Pain was described as constant, 10 out of 10 until she got up. States no pain through the course of the day, and then pain returned if worse when she lay down again tonight. Pain currently rated at 2/10 while sitting up in the exam room. Pain worse with deep inhalation. Denies trauma, fever, cough , sore throat, CP, N/V/V/D, change in urine, change in BM, vaginal symptoms. Medical history is [place] 20 years ago, asthma. Abdominal surgical history includes total hysterectomy and bladder suspension. Vital signs within normal limits. CRP 145. BUN/creatinine ratio of 33. Labs otherwise within normal limits. UA pos for uti. - Diagnoses Provider Diagnoses: Urinary tract infection, Bladder stone Discharge ED - Sign-Out/Discharge Documenting (check all that apply): Sign-Out Patient Signing out patient TO: Tamara Mendez - Discharge Plan Condition: Stable Disposition: HOME Prescriptions: Cephalexin CAP* [Keflex CAP*] 500 mg PO BID 7 Days #14 cap Patient Education Materials: Urinary Tract Infection in Women (ED), Bladder Stones (ED) Referrals: Marry Jefferson MD [Primary Care Provider] - Frank Roth MD [Medical Doctor] - 07/10/19 Additional Instructions: Call Dr. Roth's office in the morning to make a follow up appointment. Return to the Emergency Department for new or worsening symptoms. - Billing Disposition and Condition Condition: STABLE Disposition: Home
[2019-07-10 00:58] LABS: ABS Eosinophils 0.1 10^3/ul (0-0.6); ABS Monocytes 1.4 10^3/ul (0-0.8); ABS Neutrophils 7.4 10^3/ul (1.5-7.7); Hematocrit 39 % (35-47); Hemoglobin 13.2 g/dL (12.0-16.0); Lymphocyte % 10.3 %; Mean Corpuscular HGB Conc 34 g/dL (31-36); Mean Corpuscular Hemoglobin 32 pg (27-31); Mean Corpuscular Volume 93 fL (80-97); Mean Platelet Volume 8.1 fL (7.4-10.4); Nucleated Red Blood Cells % 0.1; Platelet Count 207 10^3/uL (150-450); Red Blood Count 4.15 10^6 /uL (3.70-4.87); Red Cell Distribution Width 14 % (10-15)
[2019-07-10 01:13] LABS: Albumin 3.8 g/dL (3.2-5.2); Albumin/Globulin Ratio 1.2 (1-3); BUN/Creatinine Ratio 33.3 (8-20); C Reactive Protein 145.36 mg/L (<8.01); Calcium 10.1 mg/dL (8.6-10.3); EGFR African American 97.2 (>60); EGFR Non-African American 80.3 (>60); Globulin 3.3 g/dL (2-4); Potassium 3.7 mmol/L (3.5-5.0); Total Bilirubin 0.8 mg/dL (0.2-1.0); Total Protein 7.1 g/dL (6.4-8.9)
[2019-07-10 02:02] LABS: Urine Appearance Cloudy; Urine Bilirubin Negative (Negative); Urine Blood 2+ (Negative); Urine Color Yellow; Urine Glucose Negative (Negative); Urine Ketones Trace (Negative); Urine Nitrite Positive (Negative); Urine Protein 1+(30 mg/dL) (Negative); Urine Specific Gravity 1.017 (1.010-1.030); Urine Urobilinogen Negative (Negative)
[2019-07-10 02:05] LABS: Urine Bacteria 3+ (Absent); Urine Red Blood Cell 3+(>10/hpf) (Absent); Urine Squamous Epithelial Cell Present (Absent); Urine White Blood Cell 3+(>20/hpf) (Absent)
[2019-07-10] MEDS ORDERED: Cephalexin CAP* 500 MG PO ONE (02:21)
[2019-07-10] MEDS ORDERED: Iohexol 300* (CONTRAST) 10 ML SDV IV ONE (02:41)
[2019-07-10] MEDS ORDERED: cefTRIAXone(*) 2 GM in NS 0.9% 100 ML* 100 ML IVPB ONE (02:44)
--- NOTE | 2019-07-10 02:46 | ED ---
Progress - Progress Note Progress Note: Patient signed out from Cassius LISA upon shift change 07/10/19 02:30. Awaiting Abd/Pel CT. Pending disposition. Abd/Pel CT per radiologist: 1. Extensive colonic diverticulosis. No clear evidence of acute diverticulitis. No bowel obstruction. 2. No bowel obstruction. 3. Large bladder stone measuring 3.2 cm in greatest length. Air- fluid level is seen within the bladder. This may have been the result of a recent catheterization. Cannot exclude a gas-forming bladder infection 4. Consolidation of the left lower lung. This may represent a pneumonia. Extensive cystic changes located in the lung bases. These cysts have relatively thin james. ED physician has reviewed this report. Re-Evaluation - Re-Evaluation First Eval Re-Evaluation Time: 04:06 Comment: No hx bladder stones. Agrees to take antibiotics. Advised to drink water and follow up with urology. I have discussed results with the patient and symptoms have resolved. Discussed symptoms that warrant immediate return to ED. Course/Dx - Course Course Of Treatment: Patient started on Rocephin - Diagnoses Provider Diagnoses: Urinary tract infection, Bladder stone Discharge ED - Sign-Out/Discharge Documenting (check all that apply): Patient Departure Receiving patient FROM: Cassius Fields - Discharge Plan Condition: Stable Disposition: HOME Prescriptions: Cephalexin CAP* [Keflex CAP*] 500 mg PO BID 7 Days #14 cap Patient Education Materials: Urinary Tract Infection in Women (ED), Bladder Stones (ED) Referrals: Marry Jefferson MD [Primary Care Provider] - Frank Roth MD [Medical Doctor] - 07/10/19 Additional Instructions: Call Dr. Roth's office in the morning to make a follow up appointment. Return to the Emergency Department for new or worsening symptoms. - Billing Disposition and Condition Condition: STABLE Disposition: Home - Attestation Statements Document Initiated by Scribe: Yes Documenting Scribe: Yris Long Provider For Whom Cristiane is Documenting (Include Credential): Tamara Mendez MD Scribe Attestation: Yris Oropeza, scribed for Tamara Mendez MD on 07/10/19 at 0516. Scribe Documentation Reviewed: Yes Provider Attestation: The documentation as recorded by the Yris hathaway accurately reflects the service I personally performed and the decisions made by me, Tamara Mendez MD Status of Scribe Document: Viewed
[2019-07-10 04:42] VITALS: BP 168/74
--- NOTE | 2019-07-12 05:47 | ED ---
Imaging and Labs Follow Up Follow Up Type: Labs/Cultures Labs/Culture Result: preliminary urine culture grew enterococcus faealis >100,000 and e col 25-50, 000. Patient Communication/Plan: patient placed on keflex will wait for final culture for sensitivity. Provider Diagnoses: Urinary tract infection, Bladder stone
== END 2019-07-10 04:40 | disposition home or self-care (01) ==
LOC: ED 00:02
DX: N39.0 Urinary tract infection, site not specified (principal); N21.0 Calculus in bladder; E03.9 Hypothyroidism, unspecified; I25.10 Atherosclerotic heart disease of native coronary artery without angina pectoris; E78.00 Pure hypercholesterolemia, unspecified; I10 Essential (primary) hypertension; E78.5 Hyperlipidemia, unspecified; I25.2 Old myocardial infarction; J44.9 Chronic obstructive pulmonary disease, unspecified; F41.9 Anxiety disorder, unspecified; Z95.5 Presence of coronary angioplasty implant and graft; Z90.12 Acquired absence of left breast and nipple; Z90.710 Acquired absence of both cervix and uterus; Z88.1 Allergy status to other antibiotic agents; Z88.2 Allergy status to sulfonamides; Z88.7 Allergy status to serum and vaccine
CPT/HCPCS: 36415; 74177; 80053; 81003; 81015; 83605; 83690; 85025; 86140; 87077; 87086; 87186; 96361; 96365; 99283; J0696; Q9967

== ENCOUNTER 2019-08-03 06:29 | Inpatient (IN) | payer MEDICARE, BC ==
--- NOTE | 2019-08-03 06:51 | ED ---
Head Injury - HPI Summary HPI Summary: Patient is an 88-year-old female who presents emergency department for evaluation after a fall that occurred prior to arrival this morning. Patient resides at home with her . Patient states she got up out of bed this morning, felt dizzy and fell striking her head on a chair. Patient denies loss of consciousness. She denies chest pain, shortness of breath, numbness, tingling, weakness, abdominal pain, vomiting, diarrhea, urinary symptoms. Patient currently denies pain. Past medical history of COPD, hypertension, hyperlipidemia, hypothyroidism. Is not anticoagulated. Symptoms are moderate in severity. No current modifying factors. - History Of Current Complaint Chief Complaint: EDFall Stated Complaint: DIZZY PER EMS Time Seen by Provider: 08/03/19 06:35 Hx Obtained From: Patient Pain Intensity: 4 - Allergies/Home Medications Allergies/Adverse Reactions: Allergies Allergy/AdvReac Type Severity Reaction Status Date / Time clarithromycin Allergy Severe Rash Verified 08/03/19 07:29 Sulfa (Sulfonamide Allergy Severe Rash Verified 08/03/19 07:29 Antibiotics) Tetanus Vaccines and Toxoid Allergy Severe See Comment Verified 08/03/19 07:29 PMH/Surg Hx/FS Hx/Imm Hx Previously Healthy: Yes Endocrine/Hematology History: Reports: Hx Thyroid Disease - hypothyroidism Denies: Hx Anticoagulant Therapy, Hx Blood Disorders, Hx Blood Transfusions, Hx Bone Marrow Disease, Hx Diabetes, Hx Systemic Lupus Erythematosus, Hx Sickle Cell Disease, Hx Anemia, Hx Unexplained Bleeding, Other Endocrine/Hematological Disorders Cardiovascular History: Reports: Hx Angina - in past, Hx Coronary Artery Disease - stent 1996,LAD, Hx Hypercholesterolemia, Hx Hypertension, Hx Myocardial Infarction - 1996, Other Cardiovascular Problems/Disorders - Hyperlipidemia Denies: Hx Aneurysm, Hx Angioplasty, Hx Auto Implanted Cardiovert Defib, Hx Cardiac Arrest, Hx Cardiomegaly, Hx Congenital Heart Disease, Hx Congestive Heart Failure, Hx Deep Vein Thrombosis, Hx Hypotension, Hx Pacemaker/ICD, Hx Peripheral Vascular Disease, Hx Rheumatic Fever, Hx Syncope, Hx Valvular Heart Disease Respiratory History: Reports: Hx Asthma - hx of, Hx Chronic Bronchitis, Hx Chronic Obstructive Pulmonary Disease (COPD), Other Respiratory Problems/ Disorders - 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 Denies: Hx Cystic Fibrosis, Hx Lung Cancer, Hx Pleural Effusion, Hx Pneumonia , Hx Pulmonary Edema, Hx Pulmonary Embolism, Hx Seasonal Allergies, Hx Sleep Apnea GI History: Denies: Hx Cirrhosis, Hx Crohn's Disease, Hx Diverticulosis, Hx Gall Bladder Disease, Hx Gastroesophageal Reflux Disease, Hx Gastrointestinal Bleed, Hx Hiatal Hernia, Hx Irritable Bowel, Hx Jaundice, Hx Obstructive Bowel, Hx Ileostomy, Hx Pyloric Stenosis, Hx Ulcer, Other GI Disorders History: Reports: Other Problems/Disorders - with Hysterectomy, bladder suspension, 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 Denies: Hx Acute Renal Failure, Hx Benign Prostatic Hyperplasia, Hx Chronic Renal Failure, Hx Dialysis, Hx Kidney Infection, Hx Kidney Stones Musculoskeletal History: Reports: Hx Osteoporosis, Other Musculoskeletal History - osteoporosis Denies: Hx Arthritis, Hx Back Problems, Hx Bursitis, Hx Congenital Bone Abnormalities, Hx Fibromyalgia, Hx Gout, Hx Orthopedic Injury, Hx Scoliosis, Hx Tendonitis Sensory History: Reports: Hx Cataracts - left eye, Hx Contacts or Glasses - reading glasses, Hx Hearing Problem Denies: Hx Eye Injury, Hx Eye Prosthesis, Hx Glaucoma, Hx Macular Degeneration, Hx Vision Problem, Hx Deafness, Hx Hearing Aid, Other Sensory Impairments Opthamlomology History: Reports: Hx Cataracts - left eye, Hx Contacts or Glasses - reading glasses Denies: Hx Eye Injury, Hx Eye Prosthesis, Hx Glaucoma, Hx Macular Degeneration, Hx Vision Problem, Other Sensory Impairments Neurological History: Denies: Hx Dementia, Hx Developmental Delay, Hx Headaches, Hx Migraine, Hx Nerve Disease, Hx Seizures, Hx Spinal Cord Injury, Hx Transient Ischemic Attacks (TIA), Other Neuro Impairments/Disorders Psychiatric History: Reports: Hx Anxiety - Cancer History Cancer Type, Location and Year: breast, 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 detached retina repair with laser Hx Anesthesia Reactions: No - Immunization History Date of Tetanus Vaccine: Allergic Date of Influenza Vaccine: 05/04 Infectious Disease History: No Infectious Disease History: Denies: Hx Clostridium Difficile, Hx Hepatitis, Hx Human Immunodeficiency Virus (HIV), Hx Shingles, Hx Tuberculosis, Traveled Outside the [place] in Last 30 Days - Family History Known Family History: Positive: Other - cancer, Non-Contributory - Social History Occupation: Retired Lives: With Family Alcohol Use: Rare Substance Use Type: Reports: None Hx Tobacco Use: No Smoking Status (MU): Never Smoked Tobacco Review of Systems Constitutional: Negative Negative: Fever Eyes: Negative ENT: Negative Cardiovascular: Negative Negative: Palpitations, Chest Pain Respiratory: Negative Negative: Shortness Of Breath, Cough Gastrointestinal: Negative Negative: Abdominal Pain, Vomiting, Diarrhea Genitourinary: Negative Negative: dysuria Musculoskeletal: Negative Positive: Bruising Neurological: Negative Negative: Headache, Weakness, Paresthesia, Numbness, Syncope, Slurred Speech All Other Systems Reviewed And Are Negative: Yes Physical Exam Triage Information Reviewed: Yes Vital Signs On Initial Exam: Initial Vitals Temp Pulse Resp BP Pulse Ox 97.8 F 61 14 174/83 96 08/03/19 06:35 08/03/19 06:35 08/03/19 06:35 08/03/19 06:35 08/03/19 06:35 Vital Signs Reviewed: Yes Appearance: Positive: Well-Appearing - Patient sitting in bed in no acute distress. Answers questions appropriately. Awake alert and oriented 3. Skin: Positive: Warm, Dry Head/Face: Positive: Other - Superficial abrasions and ecchymosis along right forehead and temporal region. Eyes: Positive: Normal, EOMI, LC, Conjunctiva Clear Neck: Positive: Supple, Nontender - No midline tenderness. Respiratory/Lung Sounds: Positive: Clear to Auscultation, Breath Sounds Present Cardiovascular: Positive: Normal, RRR Abdomen Description: Positive: Nontender, Soft Musculoskeletal: Positive: Normal, Strength/ROM Intact, Other - 5 out of 5 strength in bilateral upper and lower extremities without pain. No midline back tenderness. Neurological: Positive: Normal, Alert, Oriented to Person Place, Time, CN Intact II-III, Finger to Nose - No dysmetria, Facial Symmetry, Speech Normal. Negative: Facial Droop, Slurred Speech, Pronator Drift Present Psychiatric: Positive: Affect/Mood Appropriate - Daria Coma Scale Best Eye Response: 4 - Spontaneous Best Motor Response: 6 - Obeys Commands Best Verbal Response: 5 - Oriented Coma Scale Total: 15 Procedures - Sedation Patient Received Moderate/Deep Sedation with Procedure: No Diagnostics - Vital Signs Vital Signs Temp Pulse Resp BP Pulse Ox 08/03/19 06:42 57 95 08/03/19 06:40 57 174/83 95 08/03/19 06:35 97.8 F 61 14 174/83 96 - Laboratory Result Diagrams: 08/03/19 07:25 08/03/19 07:25 Lab Statement: Any lab studies that have been ordered have been reviewed, and results considered in the medical decision making process. Head Injury Course/Dx Course Of Treatment: Pt. presenting with fall after an episode of dizziness upon awakening. Pt. is afebrile and well appearing. Normal neurological exam. Pt. denies dizziness while lying in bed. Pt. received IV fluids in route. ECG done at 0655 shows a sinus bradycardia of 67bpm, normal anxis , no STEMI, similar to prior tracing. Imaging studies negative for acute findings per radiology. Orthostatic VS okay. Nurse got pt. up to go the bathroom and she started feeling very dizzy, like the room was spinning. Pt. unable to ambulate secondary to dizziness. Pt. placed back into bed and symptoms resovled. Pt. discussed with Dr. Patel who recommends neuro consult. Case discussed with Dr. Henriquez, neuro, who does not feel sxs are consistant with a posterior stroke given dizziness is positional. He feels sxs most likely vertigo. Labs show low mag of 1.5. U/A shows large bacteria and leukocytes. Pt. given a dose of meclizine, rocephin and liter of NSS. On re-exam pt. states she is feeling weak and feels dizzy if she moves around. Pt. unable to ambulate and lives at home. Hospitalist consulted for admission. Case discussed with Dr. Stephen and he will except pt. for observation. - Diagnoses Differential Diagnosis/HQI/PQRI: Cervical Sprain, Concussion Without LOC, Contusion, Hematoma, Intracranial Bleed, Skull Fracture Provider Diagnoses: Vertigo, UTI (urinary tract infection) Discharge ED - Sign-Out/Discharge Documenting (check all that apply): Patient Departure - Discharge Plan Condition: Stable Disposition: ADMITTED TO [facility] Referrals: Marry Jefferson MD [Primary Care Provider] - - Billing Disposition and Condition Condition: STABLE Disposition: Admitted to [facility]
[2019-08-03 07:32] LABS: ABS Basophils 0.1 10^3/ul (0-0.2); ABS Eosinophils 0.3 10^3/ul (0-0.6); ABS Lymphocytes 1.3 10^3/ul (1.0-4.8); ABS Monocytes 0.7 10^3/ul (0-0.8); ABS Neutrophils 5.7 10^3/ul (1.5-7.7); Eosinophil % 4.2 %; Hematocrit 40 % (35-47); Hemoglobin 13.8 g/dL (12.0-16.0); Lymphocyte % 16.4 %; Mean Corpuscular HGB Conc 34 g/dL (31-36); Mean Corpuscular Hemoglobin 32 pg (27-31); Mean Corpuscular Volume 92 fL (80-97); Platelet Count 239 10^3/uL (150-450); Red Blood Count 4.37 10^6 /uL (3.70-4.87); Red Cell Distribution Width 14 % (10-15); White Blood Count 8.2 10^3/uL (3.5-10.8)
[2019-08-03 07:48] LABS: Albumin 3.9 g/dL (3.2-5.2); Albumin/Globulin Ratio 1.1 (1-3); BUN/Creatinine Ratio 35.4 (8-20); Calcium 9.8 mg/dL (8.6-10.3); EGFR African American 147.7 (>60); EGFR Non-African American 122.1 (>60); Globulin 3.5 g/dL (2-4); Magnesium 1.5 mg/dL (1.9-2.7); Potassium 3.8 mmol/L (3.5-5.0); Total Bilirubin 0.5 mg/dL (0.2-1.0); Total Protein 7.4 g/dL (6.4-8.9)
[2019-08-03 07:50] LABS: Troponin I 0.02 ng/mL (<0.03)
[2019-08-03] MEDS ORDERED: Magnesium Chloride EC TAB* 64 MG PO ONE (08:06)
[2019-08-03 08:52] LABS: TSH (Thyroid Stimulating Horm) 1.34 mcIU/mL (0.34-5.60)
[2019-08-03] MEDS ORDERED: Meclizine TAB* 12.5 MG PO ONE (09:09)
[2019-08-03] MEDS ORDERED: Magnesium Sulfate 2 GM IV* 2 GM/50 ML BAG IVPB ONE (09:09)
[2019-08-03 09:13] LABS: Urine Appearance Turbid; Urine Bilirubin Negative (Negative); Urine Blood 1+ (Negative); Urine Color Yellow; Urine Glucose Negative (Negative); Urine Ketones Negative (Negative); Urine Nitrite Negative (Negative); Urine Protein Negative (Negative); Urine Specific Gravity 1.011 (1.010-1.030); Urine Urobilinogen Negative (Negative)
[2019-08-03] MEDS ORDERED: NS 0.9% 1000 ML** 1,000 ML IV ONE (09:20)
[2019-08-03 09:21] LABS: Urine Bacteria 2+ (Absent); Urine Red Blood Cell 3+(>10/hpf) (Absent); Urine Squamous Epithelial Cell Present (Absent); Urine White Blood Cell 3+(>20/hpf) (Absent)
[2019-08-03] MEDS ORDERED: cefTRIAXone(*) 1 GM in NS 0.9% 50 ML* 50 ML IVPB ONE (09:48)
[2019-08-03] MEDS ORDERED: Acetaminophen TAB* 325 MG PO PRN (12:45)
[2019-08-03] MEDS ORDERED: Ondansetron INJ* 2 MG/ML VIAL IV PRN (12:45)
[2019-08-03] MEDS ORDERED: NS 0.9% 1000 ML** 1,000 ML IV SCH (12:45)
[2019-08-03] MEDS ORDERED: Albuterol/Ipratropium NEB.SOL* Albuterol 2.5 MG/Ipratropium 0.5 MG 3 ML INH PRN (13:00)
[2019-08-03] MEDS ORDERED: Nitroglycerin TAB 0.4 MG* 0.4 MG TAB SL PRN (13:00)
--- NOTE | 2019-08-03 14:59 | HP ---
CC: Dr. Marry Jefferson * ADMISSION HISTORY AND PHYSICAL: DATE OF ADMISSION: 08/03/19 PRIMARY CARE PROVIDER: Dr. Marry Jefferson. MY ATTENDING WHILE IN THE HOSPITAL: Dr. Nick Stephen.* (DICTATED BY MARIA L CASTILLO) CHIEF COMPLAINT: Dizziness x12 hours. HISTORY OF PRESENT ILLNESS: Ms. Hannah is an 88-year-old female with a past medical history significant for lymphangioleiomyomatosis, coronary artery disease, hypertension, hyperlipidemia, who presents to the emergency department after she was feeling in normal state of health up until going to bed last night when she woke up overnight to get out of bed, she stood up, immediately felt as if she had no balance and fell forward striking her face. The patient did not feel like it was associated with weakness on one side or the other. She did feel like her legs felt weak when she was feeling dizzy. The patient denied any palpitations, chest pain. The patient had some slight nausea earlier in the day, but not associated with her initial symptoms. The patient states that she has been having to go to the bathroom at least twice during the night recently due to her "bladder being bad." The patient denies any dysuria, hematuria, pyuria, feelings of incomplete emptying, or other urinary symptoms. The patient denies changes in her vision. The patient has not had a stroke in the past to her knowledge. The patient denies any abdominal pain or diarrhea. The patient has not had any recent sick contact, changes to her meds. The patient has not had an episode like this before. The patient had an echo near the end of last year, which showed EF 60% to 65%, but normal right ventricular function, mild aortic stenosis, and moderate pulmonary hypertension, improved from her previous exam. Due to concern for dizziness, falls, and UTI, we were asked to evaluate the patient for admission to the hospital. PAST MEDICAL HISTORY: Lymphangioleiomyomatosis, coronary artery disease, hypertension, hyperlipidemia, hypothyroidism, pulmonary hypertension, history of breast cancer, COPD. PAST SURGICAL HISTORY: Hysterectomy, heart stent, mastectomy in 1993, detached retina laser surgery in 2014, cataract removal bilaterally, melanoma removal in 2005. MEDICATIONS: Per most recent Cardiology note as the patient does not know her medications: 1. Amlodipine 2.5 mg p.o. daily. 2. Benzonatate 100 mg p.o. q.8 hours as needed. 3. Clotrimazole 10 mg barbara 1 by mouth daily. 4. Aldactone 12.5 mg p.o. daily. 5. Nitrostat 0.4 mg sublingually q.5 minutes as needed for chest pain. 6. Aspirin 81 mg p.o. daily. 7. Lipitor 40 mg p.o. daily. 8. Nasonex 2 sprays each nostril twice daily as needed. 9. Levoxyl 88 mcg p.o. daily. 10. Mucinex DM 30/600 two times daily. 11. Ventolin inhaler 2 puffs by mouth 4 times daily as needed. 12. Trelegy Ellipta 100/62.5/25 mcg per inhalation 1 inhalation daily. 13. Vitamin D3 2000 units p.o. daily. 14. DuoNeb 0.5/2.5 one inhalation every 6 hours as needed for wheezing. ALLERGIES: SULFA, CLARITHROMYCIN, TETANUS TOXOID. FAMILY HISTORY: The patient's mother at 99 of old age. The patient's father of prostate cancer. SOCIAL HISTORY: The patient never smoked, drank, or used illicit drugs. 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 The patient is to her , Philip Hannah, who is her surrogate decision maker. The patient has 2 adult children. REVIEW OF SYSTEMS: A 10-point review of systems was reviewed and is negative except as above in the HPI. PHYSICAL EXAMINATION GENERAL: The patient is an 88-year-old female, who appears stated age and sitting comfortably in bed, in no acute distress. VITAL SIGNS: At the time of evaluation, temperature 97.8, pulse rate 66, respiratory rate 14, oxygen saturation 95% on room air, blood pressure 136/65. HEENT: Head: Normocephalic, atraumatic. Sclerae anicteric. No conjunctival injection. Nasal mucosa moist. Oral mucosa moist. No pharyngeal erythema, discharge, or exudate. NECK: Supple, nontender. No lymphadenopathy. No carotid bruits auscultated. No JVD. RESPIRATORY: Clear to auscultation bilaterally. No wheezes, rales, or rhonchi. Good air exchange bilaterally. CARDIAC: Regular rate and rhythm. No clicks, murmurs, gallops, or rubs. Pulses are 2+ in the bilateral dorsalis pedis, posterior tibialis, and radial areas. ABDOMEN: Soft, nontender, nondistended. Bowel sounds present and normoactive in all 4 quadrants. No hepatosplenomegaly. No abdominal bruits auscultated. No hepatojugular reflux. GENITOURINARY: No suprapubic or CVA tenderness. NEURO: Cranial nerves II through XII intact. Left-sided weakness 4/5 in the upper and lower extremities distally and proximally. [id number], finger-to- nose, rapid alternating movements all performed without difficulty. The patient had dizziness on standing without nystagmus. Jessie-Hallpike not performed at this time. PSYCHIATRIC: Pleasant and cooperative. SKIN: Clean, dry, and intact. No rash. Ecchymosis surrounding the right eye. DIAGNOSTIC STUDIES/LAB DATA: White blood cell count 8.2, hemoglobin 13.8, platelet count 239. Sodium 134, potassium 3.8, chloride 100, carbon dioxide 27 , anion gap 7, BUN 17, creatinine 0.48, glucose 107, lactic acid 0.7, calcium 9.8, magnesium 1.5. Bilirubin 0.65, AST 29, ALT 20, alkaline phosphatase 90. Troponin I 0.02. Protein 7.4, albumin 3.9, globulin 3.5. TSH 1.34. Urine: Yellow, turbid, 1+ blood, 3+ leukocyte esterase, 3+ white blood cells, negative nitrites, 2+ bacteria, and squamous epithelial cells present. Studies: Brain CT read as there is infiltrative edema/hematoma superficial to the right zygomatic arch and preseptal orbital region. No abnormality in the postseptal orbital is evident. No fracture evident. No CT evidence of traumatic brain injury. Cervical spine CT read as no evidence of traumatic cervical spine injury. Chest x-ray read as chronic findings of lymphangioleiomyomatosis. No superimposed acute thoracic process is evident. Pelvis x-ray read as no radiographic evidence for pelvic fracture. ASSESSMENT AND PLAN: Impression: Ms. Hannah is an 88-year-old female with past medical history significant for lymphangioleiomyomatosis, coronary artery disease, hypertension, hyperlipidemia and pulmonary hypertension, who presents to the emergency department with dizziness on standing for 12 hours with a fall , who will be admitted to the hospital for presumed urinary tract infection and further evaluation of dizziness on standing. 1. Dizziness, fall. Etiology of the patient's dizziness is unclear. The patient at this time has no nystagmus on exam. The patient does feel still dizzy when sitting up and when standing. The patient is barely able to support herself. The patient has left-sided weakness, though this is slight and would not explain her dizziness. The most likely of the patient's dizziness is orthostatic hypotension likely related to urinary tract infection. The patient was given 1 L while in the emergency department and will be continued on maintenance fluids and have repeat orthostatic vital signs checked in the morning. The patient will be treated with ceftriaxone. The patient will be evaluated by Neurology to assess the possibility that this may be related to cerebrovascular disease, though this has been discussed with Dr. Henriquez and this is less likely. Further workup pending his evaluation. The patient will be seen by Physical Therapy and Occupational Therapy. There is no speech-language pathology needs at this time. 2. Urinary tract infection. The patient has had urinary frequency and has a urinalysis with 3+ leukocyte esterase, 2+ bacteria, and 1+ blood. The patient will be treated with ceftriaxone awaiting culture. This could be contributing to the patient's dizziness. 3. Lymphangioleiomyomatosis/chronic obstructive pulmonary disease. Continue autosubstitutes for the patient's home Trelegy inhaler as well as p.r.n. DuoNeb. The patient appears to have no acute lung disorder at this time. 4. Hypertension. Continue the patient's spironolactone and amlodipine. Hold these if indicated by positive orthostatic vital signs. 5. Hyperlipidemia. Continue the patient's Lipitor. 6. History of coronary artery disease. Continue the patient's Lipitor and aspirin. The patient has no evidence of acute coronary syndrome at this time. The patient has recently had an echo that was stable with previous exams and shows no decreased ejection fraction or significant valvular abnormality. 7. 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 8. FEN: The patient will have a regular unrestricted diet and fluids as above. 9. DVT prophylaxis: The patient will have Lovenox subcu. 10. Disposition: The patient is admitted to observation to the hospital. TIME SPENT: Approximately 60 minutes was spent on the admission of this patient , 30 of which was spent [id number] with the patient obtaining history and physical and discussing treatment plan. This plan has been discussed with my attending, Dr. Nick Stephen, and he is in agreement. MARIA L CASTILLO [id number]/CPS #: [id number] [place]AN[place]
[2019-08-03] MEDS: Enoxaparin(*) 40 MG/0.4 ML SYR SUBCUT SCH (15:22)
--- NOTE | 2019-08-03 16:12 | CONS ---
NEUROLOGY CONSULTATION NOTE: DATE OF CONSULT: 08/03/19 CONSULTING PROVIDER: MARIA L Sanches REASON FOR CONSULT: Lightheadedness. CHIEF COMPLAINT: Lightheadedness and trouble ambulating. HISTORY OF PRESENT ILLNESS: Elizabeth Hannah is an 88-year-old female who has a history of myocardial infarction in 1998, prior history of vertigo, status post cardiac stent placement 20 years ago, who follows up with Dr. Paige, who presented today with a sudden onset lightheadedness. The patient stated that she got up at 3- 4 o'clock in the morning to go use the restroom. When she got out of the bed, she felt normal. As soon as she stepped on the floor, she fell hitting her head. She did not lose consciousness. Preceding the fall, she felt extremely lightheaded. She denied any vertigo. She was able to stand and walk to the bathroom herself. She stated that she walked to the bathroom and was "mopping up the blood from her head." She has not had any similar falls. She feels dizzy now every time she stands or sits up in bed. She does not use a walker or cane. Since the fall, she feels like her urinary incontinence worsened. She sometimes cannot make it to the bathroom on time, but she does have normal urgency. She has no trouble with bowel movements and denied any bowel incontinence. She denied any focal weakness. She denied any headaches, visual disturbance, any recent falls, weakness, paresthesias, or nausea/vomiting. She denied any double vision. NIH Stroke Scale 0. PAST MEDICAL HISTORY: COPD-like illness, myocardial infarction, retinal detachment, cataracts, vertigo, hypertension, hypothyroidism. PAST SURGICAL HISTORY: Stent placed in 1998, cataract surgery. MEDICATIONS: 1. Nitroglycerin tablet 0.4 mg sublingual every 5 minutes as needed. 2. Levothyroxine 88 mcg p.o. in the morning. 3. Atorvastatin 40 mg p.o. at bedtime. 4. Aspirin 81 mg p.o. in the morning. 5. Clotrimazole 1 tablet p.o. at bedtime. 6. Albuterol 2 puffs inhaled every 4 hours as needed. 7. Amlodipine 2.5 mg p.o. in the morning. 8. Vitamin D 2000 units p.o. in the morning. 9. Spironolactone 25 mg tablets, to take 12.5 mg p.o. daily. 10. Ipratropium/albuterol 1 nebulized inhaled b.i.d. as needed. 11. Guaifenesin and dextromethorphan 1 each p.o. b.i.d. ALLERGIES: CLARITHROMYCIN, SULFA. FAMILY HISTORY: No family history of stroke or seizures. SOCIAL HISTORY: She denied any alcohol or marijuana use. She denied any tobacco use. She is a retired elementary secretary and spa therapist. She is for 68 years. She lives with her . REVIEW OF SYSTEMS: A 14-point review of systems was obtained and otherwise negative except for what was mentioned in the HPI. PHYSICAL EXAM: General: Well-nourished, well-developed, frail, thin-appearing female, who is wearing diapers and is in no acute distress. Head: She has ecchymosis around the right eye. No subconjunctival injection or hemorrhage. Neck is supple and symmetrical. She has got hypertrophy of the trapezius muscle bilaterally. Cardiovascular: Regular rate and rhythm with normal S1, S2. Respiratory: Clear to auscultation bilaterally with no wheezing or rhonchi. Extremities: Normal range of motion with no cyanosis or edema. Skin: No skin lesions. Small lacerations on the right forehead and right cheek area. Psych: Affect is broad, normal mood. Neurological Examination: Mental Status: Awake, alert, and oriented to person, place, time, and general circumstances. Speech and language including repetition and fluency were assessed and found to be normal. Cranial Nerves: Pupils are equal, round, and reactive to light. Extraocular muscles are intact. There is no facial asymmetry. Symmetric sensation on the face. Tongue is symmetrical and midline with no atrophy or fasciculation. Motor Examination: 5/5 strength in bilateral upper extremities, initially was 4/5 to shoulder abduction and elbow extension on the left, but that improved after I sat the patient up at the edge of the bed. She does have 4/5 weakness to hip flexion on the left, but normal strength otherwise throughout. She has increase in tone in bilateral lower extremities, worse on the left. Reflexes 2+ in the upper extremities, 3+ at the knees with positive crossed adductor signs bilaterally. Mute plantar responses bilaterally. No clonus. Sensation is retained to pinprick all throughout. She does not have a sensory level at the spine. Coordination: Normal [id number] bilaterally. Gait: Wide based, spastic gait requiring 1 - person assist. The patient became symptomatic and lightheaded when she stood up. Please note orthostatic blood pressures were obtained by myself personally. The patient's blood pressure when she was lying flat was 171/86 with a heart rate of 75; when sitting at the edge of the bed, it was 174/79 with pulse of 70 ; when she stood up, the blood pressure was 158/61, heart rate of 65. Please note that the patient recently received IV fluids. DIAGNOSTIC STUDIES/LAB DATA: CT of the head without contrast showed no evidence of acute intracranial abnormalities. There is infiltrative edema, hematoma superficial to the right zygomatic arch and preseptal orbital region. This is consistent with the patient's recent head injury. Cervical spine CT showed multilevel osseous foraminal stenosis most prominent at C3- C4, C4-C5 and C5-C6 on the right and C3-C4 on the left. There is no evidence of any fractures. There is diffuse degenerative spondylosis and facet joint arthritis. Disk space narrowing is most marked at C5-6 where it is severe with associated reactive endplate changes. There are congenitally generous pedicles that mitigate against development of significant acquired central canal stenosis. Laboratory: WBC of 8.2, hemoglobin of 13, hematocrit of 40, platelet count of 238. Sodium of 134, potassium of 3.8, chloride of 100, creatinine 0.48, BUN/ creatinine ratio of 35, glucose of 107, magnesium of 1.5. Urinalysis is positive for pyuria with leukocyte esterase 3+, wbc's 3+. ASSESSMENT AND RECOMMENDATIONS: Ms. Elizabeth Hannah is an 88-year-old female with history of coronary artery disease and a myocardial infarction in 1998, status post stent placement, who is on aspirin therapy; chronic obstructive pulmonary disease; hypertension; hypothyroidism, who presented to [facility] on 08/03/19 after a fall. The patient stated that she developed lightheadedness before she fell. The lightheadedness started after she stood up from a seated position. She continues to have posture-related lightheadedness. Her orthostatic vitals were partially positive after IV fluid therapy. Orthostatic blood pressure was not checked before IV fluids were given in the ED. Her systolic blood pressure dropped by approximately 14 points and diastolic dropped by approximately 20 points. There was no significant change in her heart rate. The patient was also found to have a urinary tract infection. The patient's neurological examination is notable for hypertrophy of the trapezius muscle, spasticity in the lower extremities, and hyperreflexia all suggestive of a cervical or thoracic spondylosis with myelopathy. I discussed these findings with the patient. She asked what we can do about these findings and I told her we can order MRI imaging to further evaluate for spondylosis with myelopathy in either region and consult a neurosurgeon. The patient had relayed to me today specifically that she would not be interested in surgery and therefore not interested in any further work-up at this time. She will discuss this further with her . I recommend current IV fluid therapy for the orthostatic hypotension and for the urinary tract infection that was found on the urinalysis. The urine cultures are pending. In regards to her hypertension, I recommend also increasing her antihypertensive agent, probably Norvasc to 5 mg daily, and consider discontinuing spironolactone which is contributing to her orthostasis. I encouraged the patient to stay hydrated. We discussed fall precautions. She may need physical therapy to clear her after she is treated for the underlying medical problems such as the urinary tract infection and orthostasis. I do recommend a CT of the thoracic spine to sure she does not have any fractures in the thoracic spine. I also recommended checking a vitamin B12 level to rule out any metabolic causes of further upper motor neuron signs found on exam. I will continue to follow. [id number]/[facility] #: [id number] [place]AN[place]
[2019-08-03] MEDS: Clotrimazole TROCHE* 10 MG TROCHE PO SCH (20:11)
[2019-08-03] MEDS: Atorvastatin* 40 MG TAB PO SCH (20:11)
[2019-08-03] MEDS: guaiFENesin ER TAB 600 MG PO SCH (20:11)
[2019-08-04 05:07] LABS: ABS Basophils 0.1 10^3/ul (0-0.2); ABS Eosinophils 0.4 10^3/ul (0-0.6); ABS Lymphocytes 1.5 10^3/ul (1.0-4.8); ABS Monocytes 0.7 10^3/ul (0-0.8); ABS Neutrophils 5.6 10^3/ul (1.5-7.7); Eosinophil % 4.5 %; Hematocrit 38 % (35-47); Hemoglobin 12.9 g/dL (12.0-16.0); Lymphocyte % 18.2 %; Mean Corpuscular HGB Conc 34 g/dL (31-36); Mean Corpuscular Hemoglobin 31 pg (27-31); Mean Corpuscular Volume 93 fL (80-97); Mean Platelet Volume 8.1 fL (7.4-10.4); Platelet Count 231 10^3/uL (150-450); Red Blood Count 4.09 10^6 /uL (3.70-4.87); Red Cell Distribution Width 14 % (10-15); White Blood Count 8.2 10^3/uL (3.5-10.8)
[2019-08-04 05:27] LABS: BUN/Creatinine Ratio 25.9 (8-20); Calcium 9.3 mg/dL (8.6-10.3); EGFR African American 118.7 (>60); EGFR Non-African American 98.1 (>60); Potassium 3.6 mmol/L (3.5-5.0)
[2019-08-04] MEDS: PTO: FLUTICASONE/UMECLIDIN/VILANTER 1 PUFF MDI INH SCH (08:09)
[2019-08-04] MEDS: Levothyroxine TAB* 88 MCG TAB PO SCH (08:09)
[2019-08-04] MEDS: guaiFENesin ER TAB 600 MG PO SCH ×2 (08:09→21:01)
[2019-08-04] MEDS: amLODIPine TAB* 5 MG PO SCH (08:09)
[2019-08-04] MEDS: Cholecalciferol TAB* 1000 UNITS PO SCH (08:09)
[2019-08-04] MEDS: Aspirin EC TAB* 81 MG TAB.EC PO SCH (08:09)
[2019-08-04] MEDS ORDERED: Spironolactone TAB* 25 MG PO SCH (09:00)
--- NOTE | 2019-08-04 09:57 | PN ---
Subjective Date of Service: 08/04/19 Interval History: Admitted yesterday for light headedness and fall with LOC. BP this am lying to standing 161 -> 103 systolic. Will stop spironolactone, add compression stockings. Pending PT eval. On IVF. Encourage PO. Tele without events. Patient reports walking around with walker without recurrence of light headedness. Still feels "shaky" about what happened yesterday but otherwise well. Good appetite. Objective Active Medications: Acetaminophen (Tylenol Tab*) 650 mg PO Q6H PRN PRN Reason: MILD PAIN or TEMP > 100.4 Albuterol/Ipratropium (Duoneb (Albuterol 2.5 Mg/Ipratropium 0.5 Mg)) 1 neb INH BID PRN PRN Reason: WHEEZING Amlodipine Besylate (Norvasc Tab*) 2.5 mg PO QAM [facility] Last Admin: 08/04/19 08:09 Dose: 2.5 mg Aspirin (Aspirin Ec Tab*) [facility] [place] [place] Last Admin: 08/04/19 08:09 Dose: 81 mg Atorvastatin Calcium (Lipitor*) 40 mg PO BEDTIME [facility] Last Admin: 08/03/19 20:11 Dose: 40 mg Cholecalciferol (Vitamin D Tab*) 2,000 units PO QAM [facility] Last Admin: 08/04/19 08:09 Dose: 2,000 units Clotrimazole (Mycelex Fina*) 10 mg PO BEDTIME [facility] Last Admin: 08/03/19 20:11 Dose: 10 mg Enoxaparin Sodium (Lovenox(*)) 40 mg SUBCUT Q24H [facility] Last Admin: 08/03/19 15:22 Dose: 40 mg Guaifenesin (Mucinex*) 1,200 mg PO BID [facility] Last Admin: 08/04/19 08:09 Dose: 1,200 mg Sodium Chloride (Ns 0.9% 1000 Ml) 1,000 mls @ 125 mls/hr IV PER RATE [facility] Ceftriaxone Sodium 1 gm/ (Sodium Chloride) 50 mls @ 100 mls/hr IVPB Q24H [facility] Levothyroxine Sodium (Synthroid Tab*) 88 mcg PO DAILY@0600 [facility] Last Admin: 08/04/19 08:09 Dose: 88 mcg Nitroglycerin (Nitroglycerin Tab 0.4 Mg*) 0.4 mg SL Q5M PRN PRN Reason: PAIN - CHEST Ondansetron HCl (Zofran Inj*) 4 mg IV Q6H PRN PRN Reason: NAUSEA Spironolactone (Aldactone Tab*) 12.5 mg PO DAILY [facility] Last Admin: 08/04/19 08:09 Dose: 12.5 mg Vital Signs - 8 hr 08/04/19 08/04/19 08/04/19 03:16 07:15 09:13 Temperature 97 F 98.6 F Pulse Rate 56 63 72 Respiratory 19 20 Rate Blood Pressure 147/54 161/62 113/50 (mmHg) O2 Sat by Pulse 91 93 Oximetry 08/04/19 09:14 Temperature Pulse Rate 71 Respiratory Rate Blood Pressure 103/48 (mmHg) O2 Sat by Pulse Oximetry Oxygen Devices in Use Now: None Appearance: frail elderly woman in NAD Eyes: No Scleral Icterus, - - ecchymosis and scab over lateral R orbit Ears/Nose/Mouth/Throat: Clear Oropharnyx, Mucous Membranes Moist Respiratory: Symmetrical Chest Expansion and Respiratory Effort, Clear to Auscultation Cardiovascular: NL Sounds; No Murmurs; No JVD, RRR Abdominal: NL Sounds; No Tenderness; No Distention, No Hepatosplenomegaly Extremities: No Edema Neurological: Alert and Oriented x 3 Result Diagrams: 08/04/19 04:41 08/04/19 04:41 Assess/Plan/Problems-Billing Assessment: 88W with CAD and h/o VA, COPD, HTN, hypothyroid, presents after LH and fall without associated LOC. Likely orthostatic hypotension, given positive vitals here. Improved after fluid without recurrence of symptoms. No events on tele. Found with concerning UA, pending UCx on CTX. Pending PT eval. Discontinue spironolactone.
[2019-08-04] MEDS: cefTRIAXone(*) 1 GM in NS 0.9% 50 ML* 50 ML IVPB SCH (10:21)
[2019-08-04] MEDS ORDERED: NS 0.9% 500 ML* 500 ML IV SCH (11:00)
[2019-08-04] MEDS: Enoxaparin(*) 40 MG/0.4 ML SYR SUBCUT SCH (12:10)
[2019-08-04] MEDS ORDERED: Atorvastatin* 40 MG TAB PO SCH (12:45)
--- NOTE | 2019-08-04 15:32 | PN ---
Subjective Date of Service: 08/04/19 Length of Stay: 1 Days Neurology is following for lightheadedness and falls. Interval History: She slept well overnight. She still has positive orthostatic hypotension. She is minimally symptomatic though. She was able to walk with the examiner without any symptoms. She denied headaches, visual disturbance, or focal weakness/ paresthesia. Labs, imaging, and other diagnostic findings: Urine cultures: positive for UTI. CT head without contrast: no acute intracranial abnormality. CT cervical and thoracic spine: no fractures. Review of Systems: Denied CP, SOB, or palpitations. Objective Active Medications: Acetaminophen (Tylenol Tab*) 650 mg PO Q6H PRN PRN Reason: MILD PAIN or TEMP > 100.4 Albuterol/Ipratropium (Duoneb (Albuterol 2.5 Mg/Ipratropium 0.5 Mg)) 1 neb INH BID PRN PRN Reason: WHEEZING Amlodipine Besylate (Norvasc Tab*) 2.5 mg PO QAM [facility] Last Admin: 08/04/19 08:09 Dose: 2.5 mg Aspirin (Aspirin Ec Tab*) 81 mg PO QAM [facility] Last Admin: 08/04/19 08:09 Dose: 81 mg Atorvastatin Calcium (Lipitor*) 40 mg PO BEDTIME [facility] Last Admin: 08/03/19 20:11 Dose: 40 mg Cholecalciferol (Vitamin D Tab*) 2,000 units PO QAM [facility] Last Admin: 08/04/19 08:09 Dose: 2,000 units Clotrimazole (Mycelex Fina*) 10 mg PO BEDTIME [facility] Last Admin: 08/03/19 20:11 Dose: 10 mg Enoxaparin Sodium (Lovenox(*)) 40 mg SUBCUT Q24H [facility] Last Admin: 08/04/19 12:10 Dose: 40 mg Guaifenesin (Mucinex*) 1,200 mg PO BID [facility] Last Admin: 08/04/19 08:09 Dose: 1,200 mg Sodium Chloride (Ns 0.9% 1000 Ml) 1,000 mls @ 125 mls/hr IV PER RATE [facility] Ceftriaxone Sodium 1 gm/ (Sodium Chloride) 50 mls @ 100 mls/hr IVPB Q24H [facility] Last Admin: 08/04/19 10:21 Dose: 100 mls/hr Levothyroxine Sodium (Synthroid Tab*) 88 mcg PO DAILY@0600 [facility] Last Admin: 08/04/19 08:09 Dose: 88 mcg Nitroglycerin (Nitroglycerin Tab 0.4 Mg*) 0.4 mg SL Q5M PRN PRN Reason: PAIN - CHEST Ondansetron HCl (Zofran Inj*) 4 mg IV Q6H PRN PRN Reason: NAUSEA Vital Signs 08/03/19 08/03/19 08/04/19 19:59 23:33 03:16 Temperature 97.5 F 98 F 97 F Pulse Rate 60 63 56 Respiratory 16 18 19 Rate Blood Pressure 180/69 167/67 147/54 (mmHg) O2 Sat by Pulse 96 90 91 Oximetry 08/04/19 08/04/19 08/04/19 07:15 09:13 09:14 Temperature 98.6 F Pulse Rate 63 72 71 Respiratory 20 Rate Blood Pressure 161/62 113/50 103/48 (mmHg) O2 Sat by Pulse 93 Oximetry 08/04/19 11:15 Temperature 97.6 F Pulse Rate 60 Respiratory 16 Rate Blood Pressure 129/59 (mmHg) O2 Sat by Pulse 94 Oximetry Intake and Output Last 24 Hours 08/02/19 08/03/19 08/04/19 08/05/19 06:59 06:59 06:59 06:59 Intake Total 1220 680 Output Total 550 150 Balance 670 530 Weight 99 lb 94 lb 1.6 oz Intake: IV Fluids 1100 50 IVPB 25 Oral 120 605 Output: Urine 550 150 Other: Estimated Void Small Oxygen Devices in Use Now: None Neurology Exam: General: Well nourished, well developed, and in no acute distress HEENT: right eye ecchymosis, improving. Small dry scabs for recent laceration. Neck: Supple Extremities: No clubbing, cyanosis, or edema Neurological Findings: Awake, alert, and oriented to person, place, and time. Speech: fluent without dysarthria, repetition intact Cranial Nerve: PERRL, EOM intact, VFF, no nystagmus, face symmetric bilaterally Motor: s/s throughout, proximal and distal extremities x4 tone/bulk normal Sensation: intact to LT/PP bilaterally upper and lower extremities Deep Tendon Reflex: 2+ symmetric in the upper, 3+ at the knees, 1+ at the ankles. No clonus. Babinski - down going Finger to nose, rapid alternating movements intact without tremor, no dysdiadochokinesia Gait: intact with good arm swing and stride Result Diagrams: 08/04/19 04:41 08/04/19 04:41 Microbiology and Other Data: Microbiology 08/03/19 08:53 Urine Culture - Preliminary Urine Escherichia Coli Assessment/Plan Mrs. Elizabeth Hannah is an 88-year-old female [place] [facility] [place] with postural lightheadedness and falls. The patient had a right eye ecchymosis due to the fall. She denied loss of consciousness. 1. Fall and lightheadedness- due to orthostatic hypotension in the setting of spironolactone use. - She has no lateralizing deficits on examination to suspect stroke. There is no evidence of ICH on CT. - Recommendations: discussed fall precautions with the patient and . Compressive stockings and discontinuing spironolactone. Monitor for any change in BP and adjust her medication appropriately. 2. E.Coli UTI- received one dose of Rocephin. 3. Mild hyperreflexia in the lower extremities: suspect mild cervical or thoracic spondylosis. CT C and T spine did not show any severe myelopathy. Hold off from ordering further imaging for now since she is slowly improving and is asymptomatic. The patient does not want any further imaging and would not be interested in spine surgery if she would need one. I don't think this is the case here. The urinary incontinence she complained about yesterday has improved today and is most likely due to UTI. There is no need for any further neurological work-up. She does not need a follow-up with neurology at this time.
[2019-08-04] MEDS: Atorvastatin* 40 MG TAB PO SCH (20:59)
[2019-08-04] MEDS: Clotrimazole TROCHE* 10 MG TROCHE PO SCH (20:59)
[2019-08-05] MEDS: Levothyroxine TAB* 88 MCG TAB PO SCH (05:31)
[2019-08-05] MEDS: Cholecalciferol TAB* 1000 UNITS PO SCH (07:57)
[2019-08-05] MEDS: Aspirin EC TAB* 81 MG TAB.EC PO SCH (07:57)
[2019-08-05] MEDS: amLODIPine TAB* 5 MG PO SCH (07:57)
[2019-08-05] MEDS: PTO: FLUTICASONE/UMECLIDIN/VILANTER 1 PUFF MDI INH SCH (07:57)
[2019-08-05] MEDS: guaiFENesin ER TAB 600 MG PO SCH ×2 (07:57→20:59)
--- NOTE | 2019-08-05 09:07 | PN ---
Subjective Date of Service: 08/05/19 Interval History: No acute events overnight. Still with significant drop in BP after lying -> standing, but this was done without compression stockings. Patient denied symptoms at that time. On interview today, states she feels ready to go home. No dizziness when walking around room. Continues to deny dysuria, fevers, chest pain. Pending final PT evaluation before discharge. Did not do stairs yesterday. Completed 3 days of CTX for likely UTI. Objective Active Medications: Acetaminophen (Tylenol Tab*) 650 mg PO Q6H PRN PRN Reason: MILD PAIN or TEMP > 100.4 Albuterol/Ipratropium (Duoneb (Albuterol 2.5 Mg/Ipratropium 0.5 Mg)) 1 neb INH BID PRN PRN Reason: WHEEZING Amlodipine Besylate (Norvasc Tab*) 2.5 mg PO QAM [facility] Last Admin: 08/05/19 07:57 Dose: 2.5 mg Aspirin (Aspirin Ec Tab*) [facility] [place] Last Admin: 08/05/19 07:57 Dose: 81 mg Atorvastatin Calcium (Lipitor*) 40 mg PO BEDTIME [facility] Last Admin: 08/04/19 20:59 Dose: 40 mg Cholecalciferol (Vitamin D Tab*) 2,000 units [facility] [place] Last Admin: 08/05/19 07:57 Dose: 2,000 units Clotrimazole (Mycelex Fina*) 10 mg PO BEDTIME [facility] Last Admin: 08/04/19 20:59 Dose: 10 mg Enoxaparin Sodium (Lovenox(*)) 40 mg SUBCUT Q24H [facility] Last Admin: 08/04/19 12:10 Dose: 40 mg Guaifenesin (Mucinex*) 1,200 mg PO BID [facility] Last Admin: 08/05/19 07:57 Dose: 1,200 mg Ceftriaxone Sodium 1 gm/ (Sodium Chloride) 50 mls @ 100 mls/hr IVPB Q24H [facility] Last Admin: 08/04/19 10:21 Dose: 100 mls/hr Levothyroxine Sodium (Synthroid Tab*) 88 mcg PO DAILY@0600 [facility] Last Admin: 08/05/19 05:31 Dose: 88 mcg Nitroglycerin (Nitroglycerin Tab 0.4 Mg*) 0.4 mg SL Q5M PRN PRN Reason: PAIN - CHEST Ondansetron HCl (Zofran Inj*) 4 mg IV Q6H PRN PRN Reason: NAUSEA Vital Signs - 8 hr 08/05/19 08/05/19 03:03 07:47 Temperature 98 F Pulse Rate 59 62 Respiratory 14 Rate Blood Pressure 153/73 128/59 (mmHg) O2 Sat by Pulse 97 Oximetry Oxygen Devices in Use Now: None Appearance: frail-appearing elderly woman in NAD, pleasant, doing crossword puzzle Eyes: No Scleral Icterus Ears/Nose/Mouth/Throat: Clear Oropharnyx - R orbit with surrounding ecchymosis and scab, Mucous Membranes Moist Neck: NL Appearance and Movements; NL JVP, Trachea Midline Respiratory: Symmetrical Chest Expansion and Respiratory Effort, Clear to Auscultation Cardiovascular: NL Sounds; No Murmurs; No JVD, RRR Abdominal: NL Sounds; No Tenderness; No Distention, No Hepatosplenomegaly Extremities: No Edema Skin: No Rash or Ulcers Neurological: Alert and Oriented x 3 Result Diagrams: 08/04/19 04:41 08/04/19 04:41 Microbiology and Other Data: Microbiology 08/03/19 08:53 Urine Culture - Preliminary Urine Escherichia Coli Assess/Plan/Problems-Billing Assessment: 88W with CAD and h/o [place], COPD, HTN, hypothyroid, presents after LH and fall without associated LOC. Likely orthostatic hypotension, given positive vitals here. Improved after fluid without recurrence of symptoms. No events on tele. Found with positive UCx, now s/p 3 days of CTX. Spironolactone held in setting of low BPs on standing. Can go home after doing stairs with PT.
[2019-08-05] MEDS: cefTRIAXone(*) 1 GM in NS 0.9% 50 ML* 50 ML IVPB SCH (10:15)
[2019-08-05] MEDS: Enoxaparin(*) 40 MG/0.4 ML SYR SUBCUT SCH (11:57)
--- NOTE | 2019-08-05 17:42 | DS ---
CC: Marry Jefferson MD; Sidney Paige MD * DISCHARGE SUMMARY: DATE OF ADMISSION: 08/03/19 DATE OF DISCHARGE: 08/06/19 PRIMARY CARE PHYSICIAN: Marry Jefferson MD LEAD DATABASE DEVELOPER: Sidney Paige MD PRIMARY DIAGNOSES: 1. Orthostatic hypotension. 2. Urinary tract infection. SECONDARY DIAGNOSES: 1. Coronary artery disease and myocardial infarctions. 2. Hypertension. 3. Hypothyroidism. 4. Pulmonary hypertension. 5. Lymphangioleiomyomatosis. CONSULTS: Dr. Arsen Henriquez of Neurology. DISCHARGE MEDICATIONS: 1. Amlodipine 5 mg nightly. 2. Aspirin 81 mg daily. 3. Atorvastatin 40 mg nightly. 4. Levothyroxine 88 mcg in the morning. 5. Nitroglycerin 0.4 mg every 5 minutes as needed for chest pain. 6. Vitamin D3 2000 units daily. 7. DuoNebs twice a day as needed for shortness of breath. HISTORY OF PRESENT ILLNESS: Ms. Hannah is an 88-year-old woman with coronary artery disease and multiple MIs, hypertension, COPD, and lymphangioleiomyomatosis, who is presenting after dizziness and a fall. On day prior to presentation, she felt well and went to bed in her normal state of health. Upon waking overnight to use the restroom, the patient immediately fell as though she had no balance and fell forward striking her face. This fall was preceded by feeling of dizziness, although she states it is not like the room was spinning and said she feels like it was lightheadedness. She denied focal weakness, although perhaps her legs were a bit weak as they buckled during her fall. The patient struck her left orbit on the ground, but did not lose consciousness. The patient reports that she frequently uses the restroom overnight to urinate, approximately 2 times each night because she has "a bad bladder." The patient denies dysuria, fevers, chills, flank pain, hematuria, pyuria, feeling of incomplete voiding or other urinary symptoms. She denies changes in her vision, abdominal pain, diarrhea, or recent sick contacts. She never had an episode like this before. A very recent echo showed EF 60 to 65% with normal RV function, mild aortic stenosis, and moderate pulmonary hypertension, which improved from her previous exam. HOSPITAL COURSE: The patient was admitted to the medical service for further monitoring. She was initiated on ceftriaxone given her concerning urinalysis and eventually her urine culture did reveal E. coli resistant to ampicillin, fluoroquinolones, tetracycline and indeterminant to Augmentin. Throughout hospitalization, she received 3 days of ceftriaxone and she continued to deny urinary symptoms or other infectious symptoms. She is maintained on telemetry without any recorded events. The patient underwent measurement of her orthostatic vital signs, and while her blood pressure was elevated on lying flat to systolic 160s, and upon standing, her blood pressure decreased to 103. The patient was given fluids and had her spironolactone discontinued as well as ongoing treatment for her UTI. She was also encouraged to wear compression stockings during the day and to have slow lying to sitting to standing positional changes. After another night of admission, the patient continued to have a significant drop in her systolic blood pressure when going from sitting to standing; however, at this time and throughout admission, she remained without recurrence of her symptoms of dizziness, lightheadedness, or leg buckling even when working with physical therapy and walking to the bathroom. The patient required and extra day of working [employer] and walking with nurses to finally complete 7 stairs, which she has at home. She was given significant education about holding her spironolactone using slow positional changes and sitting immediately if she were to experience recurrence of her symptoms of lightheadedness upon standing. For the patient's lightheadedness and fall in the context of history of lymphangioleiomyomatosis, Dr. Henriquez saw and evaluated the patient. He recommended thoracic imaging given exam notable for hypertrophy of the trapezius muscle, spasticity of the lower extremities, and hyperreflexia, which suggested cervical or thoracic spondylosis with myelopathy; however, imaging studies were unremarkable. The patient declined further workup with MRI as she would not interested in interventional neurosurgery if she would have further neurological deficits. Neurology also recommended education on fall precautions with compression stockings and discontinuing spironolactone. PERTINENT STUDIES: CBC unremarkable. BMP initially with sodium 134, which resolved by the next day after fluids. Creatinine 0.58. Hemoglobin A1c 6.2. TSH 1.34. B12 of 378. Urine culture with E. coli over 100,000 CFUs resistant to ampicillin, fluoroquinolones and indeterminant to Augmentin. Brain CT with infiltrative edema/hematoma superficial to right zygomatic arch and preseptal orbital region, no abnormality of the postseptal orbit evident, no fracture evident, no CT evidence of a traumatic brain injury or acute intracranial process. Spine CT without evidence for traumatic cervical spine injury. Thoracic CT without thoracic spine fracture or presence of suspicious focal osseous lesions, mild multilevel degenerative spondylosis without evidence for spinal stenosis is within limits of the CT, pulmonary lymphangioleiomyomatosis. Chest x-ray, chronic findings of lymphangioleiomyomatosis, no superimposed acute thoracic process evident. Pelvis x-ray without radiographic evidence for pelvic fracture. DISCHARGE PLAN: The patient should follow up with her primary care physician as well as Dr. Paige of Cardiology. Her most significant medication change was removal of spironolactone from her home medications given significant low blood pressures upon initial standing. She received 3 days of ceftriaxone in the hospital and per ID, this is enough to treat uncomplicated asymptomatic UTI. The patient was educated on return precautions, which include but are not limited to recurrence of lightheadedness and falls or new symptoms of fevers, chest pain, palpitations, shortness of breath. She should eat a healthy diet and resume activity as tolerated. DISPOSITION: To home. CONDITION: Improved. TIME SPENT: Approximately 60 minutes was spent on discharge of this patient, more than half of which was spent in care coordination at bedside for interview and exam. [id number]/[facility] #: [id number] FRANCO
[2019-08-05] MEDS: Clotrimazole TROCHE* 10 MG TROCHE PO SCH (21:00)
[2019-08-05] MEDS ORDERED: Albuterol/Ipratropium NEB.SOL* Albuterol 2.5 MG/Ipratropium 0.5 MG 3 ML INH SCH (21:00)
[2019-08-06] MEDS ORDERED: hydrALAZINE IV* 20 MG/ML VIAL IV SLOW PU PRN (03:59)
--- NOTE | 2019-08-06 04:01 | PN ---
Hospitalist Progress Note Date of Service: 08/06/19 Cross Cover HTN overnight to sustained systolics > 180, given x 1 Hydral, can increase PO Amlodipine to 5mg
[2019-08-06] MEDS ORDERED: Albuterol/Ipratropium NEB.SOL* Albuterol 2.5 MG/Ipratropium 0.5 MG 3 ML INH PRN (05:09)
[2019-08-06] MEDS: Levothyroxine TAB* 88 MCG TAB PO SCH (05:23)
[2019-08-06] MEDS: Cholecalciferol TAB* 1000 UNITS PO SCH (08:37)
[2019-08-06] MEDS: guaiFENesin ER TAB 600 MG PO SCH (08:37)
[2019-08-06] MEDS: Aspirin EC TAB* 81 MG TAB.EC PO SCH (08:37)
--- NOTE | 2019-08-06 08:58 | PN ---
Subjective Date of Service: 08/06/19 Interval History: No acute events overnight. Pt did have SBP > 180 and was given hydralazine and morning amlodipine dose increased. Will use caution today with PT, given h/o orthostatic BP. Not discharged yesterday as pt could not complete stairs. Objective Active Medications: Acetaminophen (Tylenol Tab*) 650 mg PO Q6H PRN PRN Reason: MILD PAIN or TEMP > 100.4 Albuterol/Ipratropium (Duoneb (Albuterol 2.5 Mg/Ipratropium 0.5 Mg)) 1 neb INH Q4H PRN PRN Reason: DYSPNEA Amlodipine Besylate (Norvasc Tab*) 5 mg PO QAM [facility] Last Admin: 08/06/19 08:37 Dose: 5 mg Aspirin (Aspirin Ec Tab*) 81 mg PO QAM [facility] Last Admin: 08/06/19 08:37 Dose: 81 mg Cholecalciferol (Vitamin D Tab*) 2,000 units PO QAM [facility] Last Admin: 08/06/19 08:37 Dose: 2,000 units Clotrimazole (Mycelex Fina*) 10 mg PO BEDTIME [facility] Last Admin: 08/05/19 21:00 Dose: 10 mg Guaifenesin (Mucinex*) 1,200 mg PO BID [facility] Last Admin: 08/06/19 08:37 Dose: 1,200 mg Hydralazine HCl (Apresoline Iv*) 10 mg IV SLOW PU Q6H PRN PRN Reason: SBP >170 Last Admin: 08/06/19 04:09 Dose: 10 mg Levothyroxine Sodium (Synthroid Tab*) 88 mcg PO DAILY@0600 [facility] Last Admin: 08/06/19 05:23 Dose: 88 mcg Nitroglycerin (Nitroglycerin Tab 0.4 Mg*) 0.4 mg SL Q5M PRN PRN Reason: PAIN - CHEST Vital Signs - 8 hr 08/06/19 08/06/19 08/06/19 03:36 03:45 04:57 Temperature 97.6 F Pulse Rate 59 88 Respiratory 16 20 Rate Blood Pressure 180/73 180/89 150/78 (mmHg) O2 Sat by Pulse 96 94 Oximetry Oxygen Devices in Use Now: None Appearance: frail elderly woman in good spirits, determined Eyes: No Scleral Icterus Ears/Nose/Mouth/Throat: Clear Oropharnyx, Mucous Membranes Moist, - - bruising and scab over R orbit Neck: NL Appearance and Movements; NL JVP, Trachea Midline Respiratory: Symmetrical Chest Expansion and Respiratory Effort, Clear to Auscultation Cardiovascular: NL Sounds; No Murmurs; No JVD, RRR Abdominal: NL Sounds; No Tenderness; No Distention, No Hepatosplenomegaly Lymphatic: No Cervical Adenopathy Extremities: No Edema Skin: No Rash or Ulcers Neurological: Alert and Oriented x 3 Result Diagrams: 08/04/19 04:41 08/04/19 04:41 Microbiology and Other Data: Microbiology 08/03/19 08:53 Urine Culture - Preliminary Urine Escherichia Coli Assess/Plan/Problems-Billing Assessment: 88W with CAD and h/o VA, COPD, HTN, hypothyroid, presents after LH and fall without associated LOC. Likely orthostatic hypotension, given positive vitals here. Improved after fluid without recurrence of symptoms. No events on tele. Found with positive UCx, now s/p 3 days of CTX. Spironolactone held in setting of low BPs on standing. Can go home after doing stairs with PT.
[2019-08-06] MEDS ORDERED: amLODIPine TAB* 5 MG PO SCH (09:00)
[2019-08-06 19:29] VITALS: BP 119/51
== END 2019-08-06 15:15 | disposition home health service (06) | DRG 312 ==
LOC: ED 06:29 → MEDTELE 12:45 → OBSVTOIN 08-04 16:00
PROVIDERS: ADMIT Internal Medicine; ATTEND Internal Medicine
DX: I95.1 Orthostatic hypotension (principal); J84.81 Lymphangioleiomyomatosis; N39.0 Urinary tract infection, site not specified; Z16.11 Resistance to penicillins; Z16.23 Resistance to quinolones and fluoroquinolones; Z16.29 Resistance to other single specified antibiotic; B96.20 Unspecified Escherichia coli [E. coli] as the cause of diseases classified elsewhere; I10 Essential (primary) hypertension; S00.11XA Contusion of right eyelid and periocular area, initial encounter; E03.9 Hypothyroidism, unspecified; I27.20 Pulmonary hypertension, unspecified; I35.0 Nonrheumatic aortic (valve) stenosis; I25.10 Atherosclerotic heart disease of native coronary artery without angina pectoris; E78.5 Hyperlipidemia, unspecified; J44.9 Chronic obstructive pulmonary disease, unspecified; M48.02 Spinal stenosis, cervical region; W18.30XA Fall on same level, unspecified, initial encounter; Z85.3 Personal history of malignant neoplasm of breast; Z79.82 Long term (current) use of aspirin; Z79.51 Long term (current) use of inhaled steroids; Z79.899 Other long term (current) drug therapy; Z88.1 Allergy status to other antibiotic agents; Z88.2 Allergy status to sulfonamides; Z88.7 Allergy status to serum and vaccine; Z80.42 Family history of malignant neoplasm of prostate; Y92.003 Bedroom of unspecified non-institutional (private) residence as the place of occurrence of the external cause
CPT/HCPCS: 36415; 70450; 71045; 72125; 72128; 72170; 80048; 80053; 80061; 81003; 81015; 82607; 83036; 83605; 83735; 84443; 84484; 85025; 87077; 87086; 87186; 93005; 94640; 96365; 96367; 99284; A9270-GY; G0378; J0360; J0696; J1650; J3475

== ENCOUNTER 2020-07-15 12:34 | Observation (INO) ==
[2020-07-15] MEDS ORDERED: methylPREDNISolone 125 mg 2 ML VIAL IV ONE (13:24)
[2020-07-15] MEDS ORDERED: Albuterol/Ipratropium NEB.SOL (2.5/0.5 MG) 3 ML NEB.SOLN INH ONE (13:24)
[2020-07-15] MEDS ORDERED: Albuterol HFA INHALER 8 gm MDI INH ONE ×2 (13:54→13:55)
[2020-07-15] MEDS ORDERED: Dexamethasone IV 4 MG/ML VIAL 1 ml VIAL IV SLOW PU ONE (13:57)
[2020-07-15 14:08] LABS: ABS Eosinophils 0.3 10^3/ul (0-0.6); ABS Lymphocytes 1.4 10^3/ul (1.0-4.8); ABS Monocytes 0.5 10^3/ul (0-0.8); ABS Neutrophils 8.9 10^3/ul (1.5-7.7); Eosinophil % 2.8 %; Hematocrit 41 % (35-47); Hemoglobin 13.8 g/dL (12.0-16.0); Lymphocyte % 12.6 %; Mean Corpuscular HGB Conc 34 g/dL (31-36); Mean Corpuscular Hemoglobin 31 pg (27-31); Mean Corpuscular Volume 93 fL (80-97); Mean Platelet Volume 8.6 fL (7.4-10.4); Nucleated Red Blood Cells % 0.1; Platelet Count 189 10^3/uL (150-450); Red Blood Count 4.39 10^6 /uL (3.70-4.87); Red Cell Distribution Width 14 % (10-15); White Blood Count 11.2 10^3/uL (3.5-10.8)
[2020-07-15 14:32] LABS: ALT 24 U/L (7-52); Albumin 4.5 g/dL (3.2-5.2); Albumin/Globulin Ratio 1.5 (1-3); Alkaline Phosphatase 86 U/L (34-104); BUN/Creatinine Ratio 28.6 (8-20); Blood Urea Nitrogen 22 mg/dL (6-24); C Reactive Protein 1.88 mg/L (<8.01); CO2 Carbon Dioxide 27 mmol/L (22-32); Calcium 10.5 mg/dL (8.6-10.3); Chloride 102 mmol/L (101-111); EGFR African American 85.4 (>60); EGFR Non-African American 70.6 (>60); Glucose 104 mg/dL (70-100); Sodium 138 mmol/L (135-145); Total Protein 7.5 g/dL (6.4-8.9)
[2020-07-15 14:43] LABS: Troponin I 0.04 ng/mL (<0.03)
[2020-07-15 15:04] LABS: Anion Gap 9 mmol/L (2-11); Potassium 4.4 mmol/L (3.5-5.0)
[2020-07-15 15:05] LABS: AST 35 U/L (13-39)
[2020-07-15] MEDS ORDERED: Lidocaine 1% VIAL 10 MG/ML VIAL ONE (16:14)
[2020-07-15 16:21] LABS: Urine Appearance Cloudy; Urine Bilirubin Negative (Negative); Urine Blood 3+ (Negative); Urine Color Yellow; Urine Glucose Negative (Negative); Urine Ketones Trace (Negative); Urine Nitrite Positive (Negative); Urine Protein Negative (Negative); Urine Specific Gravity 1.015 (1.010-1.030); Urine Urobilinogen Negative (Negative)
[2020-07-15 16:42] LABS: Urine Bacteria 1+ (Absent); Urine Red Blood Cell 3+(>10/hpf) (Absent); Urine Squamous Epithelial Cell Present (Absent); Urine White Blood Cell 3+(>20/hpf) (Absent)
[2020-07-15] MEDS ORDERED: cefTRIAXone 1 gm/50 mL NS BAG 1 GM/50 ML BAG IV ONE (16:59)
[2020-07-15 21:37] LABS: Troponin I 0.09 ng/mL (<0.03)
[2020-07-15] MEDS: Albuterol/Ipratropium NEB.SOL (2.5/0.5 MG) 3 ML NEB.SOLN INH SCH (22:05)
[2020-07-15] MEDS ORDERED: Albuterol HFA INHALER 8 gm MDI INH PRN (22:22)
[2020-07-15] MEDS ORDERED: Enoxaparin 40 MG/0.4 ML SYR SUBCUT SCH (23:00)
[2020-07-16 02:04] LABS: Troponin I 0.08 ng/mL (<0.03)
[2020-07-16 06:07] LABS: ABS Lymphocytes 0.9 10^3/ul (1.0-4.8); ABS Neutrophils 11.4 10^3/ul (1.5-7.7); Eosinophil % 0.2 %; Hematocrit 41 % (35-47); Hemoglobin 13.7 g/dL (12.0-16.0); Lymphocyte % 6.9 %; Mean Corpuscular HGB Conc 34 g/dL (31-36); Mean Corpuscular Hemoglobin 31 pg (27-31); Mean Corpuscular Volume 93 fL (80-97); Mean Platelet Volume 8.8 fL (7.4-10.4); Platelet Count 162 10^3/uL (150-450); Red Blood Count 4.38 10^6 /uL (3.70-4.87); Red Cell Distribution Width 14 % (10-15); White Blood Count 13.3 10^3/uL (3.5-10.8)
[2020-07-16 06:25] LABS: Anion Gap 9 mmol/L (2-11); Blood Urea Nitrogen 21 mg/dL (6-24); CO2 Carbon Dioxide 26 mmol/L (22-32); Calcium 9.8 mg/dL (8.6-10.3); Chloride 102 mmol/L (101-111); EGFR African American 113.9 (>60); EGFR Non-African American 94.1 (>60); Glucose 101 mg/dL (70-100); Potassium 3.9 mmol/L (3.5-5.0); Sodium 137 mmol/L (135-145)
[2020-07-16 06:29] LABS: Troponin I 0.07 ng/mL (<0.03)
[2020-07-16] MEDS: Albuterol/Ipratropium NEB.SOL (2.5/0.5 MG) 3 ML NEB.SOLN INH SCH (07:00)
[2020-07-16] MEDS ORDERED: Albuterol/Ipratropium NEB.SOL (2.5/0.5 MG) 3 ML NEB.SOLN INH PRN (07:01)
[2020-07-16] MEDS: Cholecalciferol (VIT D3) 1,000 unit TAB PO SCH (07:27)
[2020-07-16] MEDS: Aspirin EC 81 mg TAB.EC (enteric coated) PO SCH (07:27)
[2020-07-16] MEDS: FLUTICASONE/UMECLIDIN/VILANTER 1 PUFF MDI INH SCH (07:54)
[2020-07-16] MEDS ORDERED: Influenza VAC *QUAD* 2020-21* 0.5 ML SYRINGE IM ONE (09:00)
[2020-07-16] MEDS: cefTRIAXone 1 gm/50 mL NS BAG 1 GM/50 ML BAG IVPB SCH (14:01)
[2020-07-16] MEDS: CALCITONIN ALT NARE SCH (16:24)
[2020-07-16] MEDS ORDERED: Enoxaparin 40 MG/0.4 ML SYR SUBCUT SCH (21:00)
[2020-07-17] MEDS: Aspirin EC 81 mg TAB.EC (enteric coated) PO SCH (08:51)
[2020-07-17] MEDS: Cholecalciferol (VIT D3) 1,000 unit TAB PO SCH (08:51)
[2020-07-17] MEDS: FLUTICASONE/UMECLIDIN/VILANTER 1 PUFF MDI INH SCH (08:52)
[2020-07-17] MEDS ORDERED: Influenza VAC *QUAD* 2020-21* 0.5 ML SYRINGE IM ONE (09:00)
[2020-07-17 11:43] VITALS: BP 143/61
[2020-07-17] MEDS: CALCITONIN ALT NARE SCH (11:46)
[2020-07-17] MEDS: cefTRIAXone 1 gm/50 mL NS BAG 1 GM/50 ML BAG IVPB SCH (14:46)
== END 2020-07-17 16:05 | disposition home or self-care (01) ==
LOC: MED 12:34 → ED 12:34 → MED 07-16 02:30 → SSU 07-17 00:53
PROVIDERS: ADMIT Internal Medicine; ATTEND Internal Medicine